=== PATIENT | female | born 2005 | race Two or more races ===

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

== ENCOUNTER 2023-01-15 21:36 | Emergency (ER) | payer BC ==
[2023-01-15] MEDS ORDERED: methylPREDNISolone SOD SUCCI 125 MG/2 ML VIAL IV STA (21:45)
[2023-01-15] MEDS ORDERED: IPRATROPIUM-ALBUTEROL 3 ML NEB INHALATION STA ×2 (21:45→21:47)
[2023-01-15] MEDS ORDERED: RACEPINEPHRINE 2.25% NEB 0.5 ML NEBU INHALATION STA (22:15)
[2023-01-15] MEDS ORDERED: FAMOTIDINE 20 MG TAB PO STA (22:15)
--- NOTE | 2023-01-15 23:28 | ED ---
Allergic Reaction HPI - General Chief complaint: Allergic Reaction Stated complaint: Allergic Reaction Time Seen by Provider: 01/15/23 21:43 Source: patient Mode of arrival: EMS Limitations: no limitations - History of Present Illness Initial Comments: 17 year Old female with no significant respiratory medical history presenting to the ED with chief complaint of ALLERGIC reaction. Patient has a known ALLERGY to bees however does not think she was stung by a bee. States that she was in her friend's bar in helping her move some stuff when all of a sudden she started to feel some facial tingling and experienced trouble breathing. She does have an EpiPen. She did not use this prior to arrival. She did take 50 mg of Benadryl prior to arrival. No chest pain. No drooling. No other complaints. - Related Data Home Medications Medication Instructions Recorded Confirmed Acetaminophen Tab [Tylenol] 325 mg PO DIRECTED PRN 05/10/22 12/05/22 Previous Rx's Medication Instructions Recorded Ibuprofen [Motrin] 400 mg PO Q6HR PRN #30 tab 10/03/22 Albuterol Inhaler [Ventolin Hfa 1 - 2 puff INHALATION Q6H PRN #1 01/15/23 Inhaler] each methylPREDNISolone Dose Pack 4 mg PO DIRECTED #1 packet 01/15/23 [Medrol Dose Pack] Allergies Allergy/AdvReac Type Severity Reaction Status Date / Time bee venom protein (honey bee) Allergy Anaphylaxis Verified 12/05/22 10:38 house dust Allergy Unknown Verified 12/05/22 10:38 latex Allergy Rash/Hives Verified 12/05/22 10:38 hydromorphone [From Dilaudid] AdvReac Unknown Verified 12/05/22 10:38 Review of Systems ROS Statement: Those systems with pertinent positive or pertinent negative responses have been documented in the HPI. ROS Other: All systems not noted in ROS Statement are negative. Past Medical History Past Medical History: No Reported History Additional Past Medical History / Comment(s): Lump left breast- removed . Hx ruptured ovarian cyst 10/2020. COVID IN EARLY 2020. migraines. pain lt wrist from old fx. History of Any Multi-Drug Resistant Organisms: None Reported Past Surgical History: No Surgical Hx Reported Additional Past Surgical History / Comment(s): Lt breast core biopsy- benign Past Anesthesia/Blood Transfusion Reactions: Postoperative Nausea & Vomiting (PONV) Additional Past Anesthesia/Blood Transfusion Reaction / Comment(s): pt had adverse rx to some part of anesthesia never known.. hard to wake up then nausea &vomiting then seizure like activity twitching,eyes rolled back ,clenching jaw. spent the night had some high bp through the night. ok the next morning.. Past Psychological History: Anxiety, Depression Smoking Status: Former smoker, Vaper - Past Family History Mother Family Medical History: No Reported History Father Family Medical History: Blood Disorder General Exam Limitations: no limitations General appearance: alert, in distress Neck exam: Present: normal inspection Respiratory exam: Present: stridor, accessory muscle use, other (Tachypnea) Cardiovascular Exam: Present: regular rate, normal rhythm GI/Abdominal exam: Present: soft Neurological exam: Present: alert, oriented X3 Skin exam: Present: warm, dry, other (No evidence of retained stinger.) Course Vital Signs 01/15/23 01/15/23 01/15/23 21:38 21:56 22:07 Temperature 98.7 F Pulse Rate 120 H 84 96 Respiratory 24 Rate Blood Pressure 133/87 O2 Sat by Pulse 100 Oximetry 01/15/23 01/15/23 23:02 23:10 Temperature Pulse Rate 84 84 Respiratory Rate Blood Pressure O2 Sat by Pulse Oximetry Medical Decision Making - Medical Decision Making Was pt. sent in by a medical professional or institution (ABDON Vasques, CURRICULUM ASSISTANT PRINCIPAL, urgent care, hospital, or longterm...) When possible be specific @ -No Did you speak to anyone other than the patient for history (EMS, parent, family, police, friend...)? What history was obtained from this source @ -No Did you review nursing and triage notes (agree or disagree)? Why? @ -I reviewed and agree with nursing and triage notes Were old charts reviewed (outside hosp., previous admission, EMS record, old EKG, old radiological studies, urgent care reports/EKG's, longterm records)? Report findings @ -No old charts were reviewed Differential Diagnosis (chest pain, altered mental status, abdominal pain women, abdominal pain men, vaginal bleeding, weakness, fever, dyspnea, syncope, headac he, dizziness, GI bleed, back pain, seizure, CVA, palpatations, mental health, musculoskeletal)? @ -Differential Dyspnea: Coronary syndrome, arrhythmia, tamponade, asthma, COPD, pulmonary embolism, pneumonia, pneumothorax, pulmonary effusion, anaphylaxis, diabetic ketoacidosis, flailed chest, pulmonary contusion, diaphragmatic rupture, anemia, neuromuscular, this is not meant to be an all-inclusive list. EKG interpreted by me (3pts min.). @ -None X-rays interpreted by me (1pt min.). @ -None done CT interpreted by me (1pt min.). @ -None done U/S interpreted by me (1pt. min.). @ -None done What testing was considered but not performed or refused? (CT, X-rays, U/S, labs)? Why? @ -None What meds were considered but not given or refused? Why? @ -None Did you discuss the management of the patient with other professionals (professionals i.e. , PA, CURRICULUM ASSISTANT PRINCIPAL, lab, RT, psych nurse, social science instructor, movement therapist, teacher, safety security officer, bilingual case manager)? Give summary @ -No Was smoking cessation discussed for >3mins.? @ -No Was critical care preformed (if so, how long)? @ -No Were there social determinants of health that impacted care today? How? (Homelessness, low income, unemployed, alcoholism, drug addiction, transportat ion, low edu. Level, literacy, decrease access to med. care, residential, rehab)? @ -No Was there de-escalation of care discussed even if they declined (Discuss DNR or withdrawal of care, Hospice)? DNR status @ -No What co-morbidities impacted this encounter? (DM, HTN, Smoking, COPD, CAD, Cancer, CVA, ARF, Chemo, Hep., AIDS, mental health diagnosis, sleep apnea, morbid obesity)? @ -None Was patient admitted / discharged? Hospital course, mention meds given and route, prescriptions, significant lab abnormalities, going to OR and other pertinent info. @ -Discharge 17-year-old female presenting to the ED with dyspnea after exposure to allergen. Initially, tachypneic with stridor on exam with accessory muscle use. Patient provided DuoNeb and racemic epi. In addition, received Solu-Medrol and Pepcid. Reevaluation of patient shows significant improvement of stridor. At discharge, patient resting comfortably with no stridor. Patient will be via prescription for Medrol Dosepak and inhaler. Discharged home in stable condition. Advised follow-up with PCP and/or chocolate refining roller. Discussed return precautions with patient's mother who verbalizes agreement. Undiagnosed new problem with uncertain prognosis? @ -No Drug Therapy requiring intensive monitoring for toxicity (Heparin, Nitro, Insulin, Cardizem)? @ -No Were any procedures done? @ -No Diagnosis/symptom? @ -Dyspnea Acute, or Chronic, or Acute on Chronic? @ -Acute Uncomplicated (without systemic symptoms) or Complicated (systemic symptoms)? @ -Complicated Side effects of treatment? @ -No Exacerbation, Progression, or Severe Exacerbation? @ -No Poses a threat to life or bodily function? How? (Chest pain, USA, ID, pneumonia, PE, COPD, DKA, ARF, appy, cholecystitis, CVA, Diverticulitis, Homicidal, Suicidal, threat to staff... and all critical care pts) @ -Yes Disposition Clinical Impression: Allergic reaction Disposition: HOME SELF-CARE Instructions (If sedation given, give patient instructions): Anaphylaxis (ED), General Allergic Reaction (ED), Allergy Testing (ED), Allergies (ED) Additional Instructions: Please return to the Emergency Department if symptoms worsen or any other concerns. Please follow up with your PCP and/or chocolate refining roller. Prescriptions: methylPREDNISolone Dose Pack [Medrol Dose Pack] 4 mg PO DIRECTED #1 packet Albuterol Inhaler [Ventolin Hfa Inhaler] 1 - 2 puff INHALATION Q6H PRN #1 each PRN Reason: Dyspnea Is patient prescribed a controlled substance at d/c from ED?: No Referrals: Gerald Dueñas MD [Primary Care Provider] - 1-2 days Time of Disposition: 23:32
[2023-01-16 00:04] VITALS: RESP 18
[2023-01-16 00:34] VITALS: BP 102/65; PULSE 74; TEMP 97.8
== END 2023-01-15 23:47 | disposition home or self-care (01) ==
LOC: EC 21:36
DX: T63.441A Toxic effect of venom of bees, accidental (unintentional), initial encounter (principal); F41.9 Anxiety disorder, unspecified; F32.A Depression, unspecified; F17.290 Nicotine dependence, other tobacco product, uncomplicated; Z91.040 Latex allergy status; Z91.030 Bee allergy status; Z88.8 Allergy status to other drugs, medicaments and biological substances; Z79.899 Other long term (current) drug therapy
CPT/HCPCS: 94640 ×2; 99283; 96374; J2930

== ENCOUNTER 2023-01-31 09:49 | Emergency (ER) | payer BC ==
[2023-01-31] MEDS ORDERED: SODIUM CHLORIDE 0.9% 1,000 ML IV STA ×2 (10:09→13:05)
--- NOTE | 2023-01-31 10:18 | ED ---
General Adult HPI - General Chief complaint: Shortness of Breath Stated complaint: SOB Time Seen by Provider: 01/31/23 10:04 Source: patient, RN notes reviewed Mode of arrival: ambulatory Limitations: no limitations - History of Present Illness Initial comments: Patient is a 17-year-old female presented ER with chief complaint of feeling out of body. Patient states she was at work this morning and started to feel extremely lightheaded. She states she went to her coworkers who states she turned white and passed out. Patient states never happened to her before. Patient states that she was sick about a week ago and may be slightly dehydrated. Patient states she did eat this morning. Patient has no significant past medical history. Patient describes a fluttering sensation in her chest with slight shortness of breath. Patient denies any fevers, chills, night sweats, abdominal pain, urinary symptoms, peripheral edema. - Related Data Home Medications Medication Instructions Recorded Confirmed Acetaminophen Tab [Tylenol] 325 mg PO DIRECTED PRN 05/10/22 12/05/22 Previous Rx's Medication Instructions Recorded Ibuprofen [Motrin] 400 mg PO Q6HR PRN #30 tab 10/03/22 Albuterol Inhaler [Ventolin Hfa 1 - 2 puff INHALATION Q6H PRN #1 01/15/23 Inhaler] each methylPREDNISolone Dose Pack 4 mg PO DIRECTED #1 packet 01/15/23 [Medrol Dose Pack] Allergies Allergy/AdvReac Type Severity Reaction Status Date / Time bee venom protein (honey bee) Allergy Anaphylaxis Verified 01/31/23 10:05 house dust Allergy Unknown Verified 01/31/23 10:05 latex Allergy Rash/Hives Verified 01/31/23 10:05 hydromorphone [From Dilaudid] AdvReac Unknown Verified 01/31/23 10:05 Review of Systems ROS Statement: Those systems with pertinent positive or pertinent negative responses have been documented in the HPI. ROS Other: All systems not noted in ROS Statement are negative. Past Medical History Past Medical History: No Reported History Additional Past Medical History / Comment(s): Lump left breast- removed . Hx ruptured ovarian cyst 10/2020. COVID IN EARLY 2020. migraines. pain lt wrist from old fx. History of Any Multi-Drug Resistant Organisms: None Reported Past Surgical History: No Surgical Hx Reported Additional Past Surgical History / Comment(s): Lt breast core biopsy- benign Past Anesthesia/Blood Transfusion Reactions: Postoperative Nausea & Vomiting (PONV) Additional Past Anesthesia/Blood Transfusion Reaction / Comment(s): pt had adverse rx to some part of anesthesia never known.. hard to wake up then nausea &vomiting then seizure like activity twitching,eyes rolled back ,clenching jaw. spent the night had some high bp through the night. ok the next morning.. Past Psychological History: Anxiety, Depression Smoking Status: Vaper Past Alcohol Use History: None Reported Past Drug Use History: None Reported - Past Family History Mother Family Medical History: No Reported History Father Family Medical History: Blood Disorder General Exam Limitations: no limitations General appearance: alert, in no apparent distress, anxious (Patient is shaking on exam.) Head exam: Present: atraumatic, normocephalic, normal inspection Respiratory exam: Present: normal lung sounds bilaterally. Absent: respiratory distress, wheezes, rales, rhonchi, stridor Cardiovascular Exam: Present: regular rate, normal rhythm, normal heart sounds. Absent: systolic murmur, diastolic murmur, rubs, gallop, clicks GI/Abdominal exam: Present: soft, normal bowel sounds. Absent: distended, tenderness, guarding, rebound, rigid Neurological exam: Present: alert, oriented X3, CN II-XII intact Psychiatric exam: Present: normal affect, normal mood Skin exam: Present: warm, dry, intact, normal color. Absent: rash Course Vital Signs 01/31/23 01/31/23 01/31/23 10:00 10:38 10:40 Temperature 98.2 F Pulse Rate 75 Pulse Rate [ 82 Sitting Crepe Laminator Operator] Pulse Rate [ Standing Crepe Laminator Operator ] Pulse Rate [ 68 Supine Crepe Laminator Operator] Respiratory 18 22 24 Rate Blood Pressure 137/83 Blood Pressure 122/93 [Right Arm Sitting] Blood Pressure [Right Arm Standing] Blood Pressure 123/80 [Right Arm Supine] O2 Sat by Pulse 100 100 100 Oximetry 01/31/23 01/31/23 01/31/23 10:42 14:36 14:38 Temperature Pulse Rate Pulse Rate [ 73 Sitting Crepe Laminator Operator] Pulse Rate [ 92 Standing Crepe Laminator Operator ] Pulse Rate [ 63 Supine Crepe Laminator Operator] Respiratory 26 H 18 18 Rate Blood Pressure Blood Pressure 114/70 [Right Arm Sitting] Blood Pressure 125/91 [Right Arm Standing] Blood Pressure 110/64 [Right Arm Supine] O2 Sat by Pulse 100 100 100 Oximetry 01/31/23 14:40 Temperature Pulse Rate Pulse Rate [ Sitting Crepe Laminator Operator] Pulse Rate [ 70 Standing Crepe Laminator Operator ] Pulse Rate [ Supine Crepe Laminator Operator] Respiratory 18 Rate Blood Pressure Blood Pressure [Right Arm Sitting] Blood Pressure 109/80 [Right Arm Standing] Blood Pressure [Right Arm Supine] O2 Sat by Pulse 100 Oximetry Medical Decision Making - Medical Decision Making Was pt. sent in by a medical professional or institution (, PA, FLOOR HELPER, urgent care, hospital, or residential...) When possible be specific @ -No Did you speak to anyone other than the patient for history (EMS, parent, family, police, friend...)? What history was obtained from this source @ -No Did you review nursing and triage notes (agree or disagree)? Why? @ -I reviewed and agree with nursing and triage notes Were old charts reviewed (outside hosp., previous admission, EMS record, old EKG, old radiological studies, urgent care reports/EKG's, residential records)? Report findings @ -No old charts were reviewed Differential Diagnosis (chest pain, altered mental status, abdominal pain women, abdominal pain men, vaginal bleeding, weakness, fever, dyspnea, syncope, headache, dizziness, GI bleed, back pain, seizure, CVA, palpatations, mental health, musculoskeletal)? @ -Differential Syncope: Valvular disease, hypertrophic cardiomyopathy, pul monary embolism, tamponade, tachycardia, bradycardia, RI, hypovolemia, hemorrhage, dissection, anemia, intracranial hemorrhage, seizure, hypoglycemia, carbon monoxide poisoning, this is not meant to be an all-inclusive list. EKG interpreted by me (3pts min.). @ -As above X-rays interpreted by me (1pt min.). @ -Chest x-ray showed no acute cardiopulmonary processes. CT interpreted by me (1pt min.). @ -None done U/S interpreted by me (1pt. min.). @ -None done What testing was considered but not performed or refused? (CT, X-rays, U/S, labs)? Why? @ -None What meds were considered but not given or refused? Why? @ -None Did you discuss the management of the patient with other professionals (professionals i.e. , ABDON, FLOOR HELPER, lab, RT, psych nurse, social security specialist, window treatment installer, teacher, chief growth officer, comp field case manager)? Give summary @ -No Was smoking cessation discussed for >3mins.? @ -Yes Was critical care preformed (if so, how long)? @ -No Were there social determinants of health that impacted care today? How? (Homelessness, low income, unemployed, alcoholism, drug addiction, transportation, low edu. Level, literacy, decrease access to med. care, shelter, rehab)? @ -No Was there de-escalation of care discussed even if they declined (Discuss DNR or withdrawal of care, Hospice)? DNR status @ -No What co-morbidities impacted this encounter? (DM, HTN, Smoking, COPD, CAD, Cancer, CVA, ARF, Chemo, Hep., AIDS, mental health diagnosis, sleep apnea, morbid obesity)? @ -None Was patient admitted / discharged? Hospital course, mention meds given and route, prescriptions, significant lab abnormalities, going to OR and other pertinent info. @ -Discharge. Labs obtained in the ER showed a potassium of 3.2. Chest x-ray showed no acute cardiopulmonary processes. EKG taken showed normal sinus rhythm with sinus arrhythmia. Patient received 2 L of IV fluid and IV Toradol for symptom control. I discussed smoking cessation with the patient. Upon re- evaluation, patient states she was feeling better. Orthostatics were taken which remained stable.I also advised her to make position changes slowly, increase her hydration and salt intake. Patient will be discharged in stable condition with follow-up to PCP. Patient expressed understanding and agreement with the care plan. Undiagnosed new problem with uncertain prognosis? @ -No Drug Therapy requiring intensive monitoring for toxicity (Heparin, Nitro, Insulin, Cardizem)? @ -No Were any procedures done? @ -No Diagnosis/symptom? @ -Vasovagal syncope Acute, or Chronic, or Acute on Chronic? @ -Acute Uncomplicated (without systemic symptoms) or Complicated (systemic symptoms)? @ -Uncomplicated Side effects of treatment? @ -No Exacerbation, Progression, or Severe Exacerbation? @ -No Poses a threat to life or bodily function? How? (Chest pain, USA, RI, pneumonia, PE, COPD, DKA, ARF, appy, cholecystitis, CVA, Diverticulitis, Homicidal, Suicidal, threat to staff... and all critical care pts) @ -No - Lab Data Result diagrams: 01/31/23 10:35 01/31/23 10:35 Lab Results 01/31/23 01/31/23 01/31/23 Range/Units 10:35 10:35 10:35 WBC 9.8 (4.0-11.0) k/uL RBC 4.71 (3.80-5.40) m/uL Hgb 15.1 (11.4-16.0) gm/dL Hct 43.0 (34.0-46.0) % MCV 91.2 (80.0-100.0) fL MCH 32.0 (25.0-35.0) pg MCHC 35.0 (31.0-37.0) g/dL RDW 11.8 (11.5-15.5) % Plt Count 328 (150-450) k/uL MPV 6.8 Neutrophils % 58 % Lymphocytes % 35 % Monocytes % 4 % Eosinophils % 1 % Basophils % 0 % Neutrophils # 5.7 (1.3-7.7) k/uL Lymphocytes # 3.4 (1.0-4.8) k/uL Monocytes # 0.4 (0-1.0) k/uL Eosinophils # 0.1 (0-0.7) k/uL Basophils # 0.0 (0-0.2) k/uL D-Dimer (<0.60) mg/L FEU Sodium 141 (137-145) mmol/L Potassium 3.2 L (3.5-5.1) mmol/L Chloride 108 H (98-107) mmol/L Carbon Dioxide 20 L (22-30) mmol/L Anion Gap 13 mmol/L BUN 9 (7-17) mg/dL Creatinine 0.75 (0.52-1.04) mg/dL Est GFR (CKD-EPI)AfAm >90 (>60 ml/min/1.73 sqM) Est GFR (CKD-EPI)NonAf >90 (>60 ml/min/1.73 sqM) Glucose 107 H (74-99) mg/dL Calcium 9.6 (8.4-10.2) mg/dL Total Bilirubin 0.4 (0.2-1.3) mg/dL AST 26 (14-36) U/L ALT 22 (4-34) U/L Alkaline Phosphatase 85 (38-126) U/L Troponin I <0.012 (0.000-0.034) ng/mL Total Protein 7.2 (6.3-8.2) g/dL Albumin 4.3 (3.5-5.0) g/dL Urine Color Urine Appearance (Clear) Urine pH (5.0-8.0) Ur Specific [place] (1.001-1.035) Urine Protein (Negative) Urine Glucose (UA) (Negative) Urine Ketones (Negative) Urine Blood (Negative) Urine Nitrite (Negative) Urine Bilirubin (Negative) Urine Urobilinogen (<2.0) mg/dL Ur Leukocyte Esterase (Negative) Urine RBC (0-5) /hpf Urine WBC (0-5) /hpf Ur Squamous Epith Cells (0-4) /hpf Urine Bacteria (None) /hpf Urine Mucus (None) /hpf Urine HCG, Qual (Not Detectd) 01/31/23 01/31/23 01/31/23 Range/Units 10:35 10:35 10:35 WBC (4.0-11.0) k/uL RBC (3.80-5.40) m/uL Hgb (11.4-16.0) gm/dL Hct (34.0-46.0) % MCV (80.0-100.0) fL MCH (25.0-35.0) pg MCHC (31.0-37.0) g/dL RDW (11.5-15.5) % Plt Count (150-450) k/uL MPV Neutrophils % % Lymphocytes % % Monocytes % % Eosinophils % % Basophils % % Neutrophils # (1.3-7.7) k/uL Lymphocytes # (1.0-4.8) k/uL Monocytes # (0-1.0) k/uL Eosinophils # (0-0.7) k/uL Basophils # (0-0.2) k/uL D-Dimer 0.18 (<0.60) mg/L FEU Sodium (137-145) mmol/L Potassium (3.5-5.1) mmol/L Chloride (98-107) mmol/L Carbon Dioxide (22-30) mmol/L Anion Gap mmol/L BUN (7-17) mg/dL Creatinine (0.52-1.04) mg/dL Est GFR (CKD-EPI)AfAm (>60 ml/min/1.73 sqM) Est GFR (CKD-EPI)NonAf (>60 ml/min/1.73 sqM) Glucose (74-99) mg/dL Calcium (8.4-10.2) mg/dL Total Bilirubin (0.2-1.3) mg/dL AST (14-36) U/L ALT (4-34) U/L Alkaline Phosphatase (38-126) U/L Troponin I (0.000-0.034) ng/mL Total Protein (6.3-8.2) g/dL Albumin (3.5-5.0) g/dL Urine Color Colorless Urine Appearance Clear (Clear) Urine pH 6.5 (5.0-8.0) Ur Specific [place] 1.008 (1.001-1.035) Urine Protein Negative (Negative) Urine Glucose (UA) Negative (Negative) Urine Ketones Negative (Negative) Urine Blood Negative (Negative) Urine Nitrite Negative (Negative) Urine Bilirubin Negative (Negative) Urine Urobilinogen <2.0 (<2.0) mg/dL Ur Leukocyte Esterase Moderate H (Negative) Urine RBC 1 (0-5) /hpf Urine WBC 4 (0-5) /hpf Ur Squamous Epith Cells 3 (0-4) /hpf Urine Bacteria Rare H (None) /hpf Urine Mucus Rare H (None) /hpf Urine HCG, Qual Not Detected (Not Detectd) - EKG Data -: EKG Interpreted by Me EKG Comments: EKG taken at 10:31 shows a normal sinus rhythm with sinus arrhythmia noted there is no acute ST or T-wave abnormalities. Ventricular rate 82, NV interval 143, QRS duration 100, QT/QTC 363/41. - Radiology Data Radiology results: report reviewed, image reviewed Disposition Clinical Impression: Dehydration, Vasovagal near syncope Disposition: HOME SELF-CARE Condition: Stable Instructions (If sedation given, give patient instructions): Syncope (ED) Additional Instructions: Please return to the Emergency Department if symptoms worsen or any other concerns. Please increase your water intake and eat food with salt content to maintain blood pressure. Advised to stop vaping as it may cause current symptoms and pain. Is patient prescribed a controlled substance at d/c from ED?: No Referrals: Gerald Dueñas MD [Primary Care Provider] - 1-2 days Time of Disposition: 14:47
[2023-01-31 10:26] VITALS: TEMP 98.2
[2023-01-31 10:57] LABS: Basophils % (A) 0 %; Eosinophils # (A) 0.1 k/uL (0-0.7); Eosinophils % (A) 1 %; HGB 15.1 gm/dL (11.4-16.0); Lymphocytes # (A) 3.4 k/uL (1.0-4.8); Lymphocytes % (A) 35 %; MCV 91.2 fL (80.0-100.0); Mean Platelet Volume 6.8; Monocytes # (A) 0.4 k/uL (0-1.0); Monocytes % (A) 4 %; Neutrophils # (A) 5.7 k/uL (1.3-7.7); Neutrophils % (A) 58 %; Platelet Count 328 k/uL (150-450); RBC 4.71 m/uL (3.80-5.40); RDW 11.8 % (11.5-15.5); WBC 9.8 k/uL (4.0-11.0)
[2023-01-31 11:31] LABS: Appearance,Urine Clear (Clear); Bacteria,Urine Rare /hpf; Bilirubin,Urine Negative (Negative); Blood,Urine Negative (Negative); Color,Urine Colorless; Glucose,Urine (UA) Negative (Negative); Ketones,Urine Negative (Negative); Leukocyte Esterase,Urine Moderate (Negative); Mucus,Urine Rare /hpf; Nitrite,Urine Negative (Negative); PH, Urine 6.5 (5.0-8.0); Protein,Urine Negative (Negative); RBC,Urine 1 /hpf (0-5); Specific Gravity,Urine 1.008 (1.001-1.035); Squamous Epithelial Cell,Urine 3 /hpf (0-4); Urobilinogen,Urine <2.0 mg/dL (<2.0); WBC,Urine 4 /hpf (0-5)
[2023-01-31 11:48] LABS: ALT 22 U/L (4-34); AST 26 U/L (14-36); African American GFR (CKD) >90 (>60 ml/min/1.73 sqM); Albumin 4.3 g/dL (3.5-5.0); Alkaline Phosphatase 85 U/L (38-126); Anion Gap 13 mmol/L; Blood Urea Nitrogen 9 mg/dL (7-17); Calcium 9.6 mg/dL (8.4-10.2); Carbon Dioxide 20 mmol/L (22-30); Chloride 108 mmol/L (98-107); Glucose 107 mg/dL (74-99); Non-African American GFR(CKD) >90 (>60 ml/min/1.73 sqM); Potassium 3.2 mmol/L (3.5-5.1); Sodium 141 mmol/L (137-145); Total Bilirubin 0.4 mg/dL (0.2-1.3); Total Protein 7.2 g/dL (6.3-8.2)
--- NOTE | 2023-01-31 13:04 | XR ---
EXAMINATION TYPE: XR chest 2V DATE OF EXAM: 01/31/2023 COMPARISON: 01/04/2022 TECHNIQUE: PA and lateral views submitted. HISTORY: Chest pain and shortness of breath FINDINGS: The lungs are clear and there is no pneumothorax, pleural effusion, or focal pneumonia. Heart size normal and no overt failure. Osseous structures demonstrate hypertrophic and degenerative changes of the spine. IMPRESSION: 1. No acute process.
[2023-01-31] MEDS ORDERED: KETOROLAC 15 MG/ML 1 ML VIAL IVP STA (13:20)
[2023-01-31 15:07] VITALS: BP 109/80; PULSE 70; RESP 18
== END 2023-01-31 15:15 | disposition home or self-care (01) ==
LOC: EC 09:49
DX: E86.0 Dehydration (principal); R55 Syncope and collapse; F17.290 Nicotine dependence, other tobacco product, uncomplicated; Z86.59 Personal history of other mental and behavioral disorders; Z91.030 Bee allergy status; Z91.040 Latex allergy status; Z88.6 Allergy status to analgesic agent; Z88.8 Allergy status to other drugs, medicaments and biological substances
CPT/HCPCS: 36415; 93005; 85379; 80053; 84484; 85025; 81001; 81025; 71046; 99285; 96374; 96361 ×2; J1885

== ENCOUNTER 2023-02-11 08:59 | Emergency (ER) | payer BC ==
[2023-02-11 09:27] VITALS: RESP 16
--- NOTE | 2023-02-11 09:37 | ED ---
Dizziness HPI - General Source: patient, RN notes reviewed Mode of arrival: wheelchair Limitations: no limitations <Tc Ceballos - Last Filed: 02/11/23 09:35> - General Source: patient, RN notes reviewed Mode of arrival: wheelchair Limitations: no limitations <Nile Yadav - Last Filed: 02/11/23 15:20> - General Chief Complaint: Syncope Stated Complaint: light headed dizzing abnormal heart rates Time Seen by Provider: 02/11/23 09:36 - History of Present Illness Initial Comments: 17-year-old female presents emergency Department with chief complaint of palpitations, near syncope. Patient states that she started having these episodes. She was seen in emergency department told that she had hypokalemia. Patient states that she was working upstairs when she started feeling her heart was racing sates that she has some television and felt like she's been a pass out. She was told that her heart rate was in the 150s and then suddenly heart rate dropped to 50. Patient does feel very lightheaded, states that she feels more dizzy now. (Tc Ceballos) Patient is a pleasant 17-year-old female presenting to the emergency department with concerns of lightheadedness. Patient was at work today or patient felt lightheaded. Patient felt fluttering in her chest. Patient states her heart rate was 150 and felt like she was about to pass out. Patient still has some symptoms however not as severe. Patient states she did have a syncopal episode a couple of weeks ago. No chest pain or dyspnea. (Nile Yadav) - Related Data Home Medications Medication Instructions Recorded Confirmed Acetaminophen [Tylenol Extra 1,000 mg PO Q6H PRN 02/11/23 02/11/23 Strength] medroxyPROGESTERone [Depo-Provera] 150 mg IM Q84D 02/11/23 02/11/23 Allergies Allergy/AdvReac Type Severity Reaction Status Date / Time bee venom protein (honey bee) Allergy Anaphylaxis Verified 02/11/23 12:59 house dust Allergy Unknown Verified 02/11/23 12:59 latex Allergy Rash/Hives Verified 02/11/23 12:59 hydromorphone [From Dilaudid] AdvReac Unknown Verified 02/11/23 12:59 Review of Systems ROS Other: All systems not noted in ROS Statement are negative. <Tc Ceballos - Last Filed: 02/11/23 09:35> ROS Other: All systems not noted in ROS Statement are negative. Constitutional: Denies: fever Eyes: Denies: eye pain ENT: Denies: ear pain Respiratory: Denies: cough, dyspnea Cardiovascular: Denies: chest pain Endocrine: Denies: fatigue Gastrointestinal: Denies: abdominal pain Neurological: Denies: headache, weakness Psychiatric: Reports: anxiety <Nile Yadav - Last Filed: 02/11/23 15:20> ROS Statement: Those systems with pertinent positive or pertinent negative responses have been documented in the HPI. Past Medical History Past Medical History: No Reported History Additional Past Medical History / Comment(s): Lump left breast- removed . Hx ruptured ovarian cyst 10/2020. COVID IN EARLY 2020. migraines. pain lt wrist from old fx. History of Any Multi-Drug Resistant Organisms: None Reported Past Surgical History: No Surgical Hx Reported Additional Past Surgical History / Comment(s): Lt breast core biopsy- benign Past Anesthesia/Blood Transfusion Reactions: Postoperative Nausea & Vomiting (PONV) Additional Past Anesthesia/Blood Transfusion Reaction / Comment(s): pt had adverse rx to some part of anesthesia never known.. hard to wake up then nausea &vomiting then seizure like activity twitching,eyes rolled back ,clenching jaw. spent the night had some high bp through the night. ok the next morning.. Past Psychological History: Anxiety, Depression Smoking Status: Former smoker, Vaper - Past Family History Mother Family Medical History: No Reported History Father Family Medical History: Blood Disorder <Tc Ceballos Dewayne - Last Filed: 02/11/23 09:35> General Exam Limitations: no limitations <Tc Ceballos - Last Filed: 02/11/23 09:35> Limitations: no limitations General appearance: alert, in no apparent distress Head exam: Present: atraumatic Eye exam: Present: normal appearance Respiratory exam: Present: normal lung sounds bilaterally Cardiovascular Exam: Present: regular rate, normal rhythm, normal heart sounds Expanded Peripheral pulses: 2+: Radial (R), Radial (L), Dorsalis Pedis (R), Dorsalis Pedis (L) GI/Abdominal exam: Present: soft. Absent: tenderness Extremities exam: Present: normal inspection. Absent: pedal edema, calf tenderness Neurological exam: Present: alert Psychiatric exam: Present: normal affect, normal mood Skin exam: Present: normal color <Nile Yadav - Last Filed: 02/11/23 15:20> - General Exam Comments Initial Comments: Visual Physical Exam Vital signs reviewed General: Well-appearing, nontoxic, no acute distress. Head: Normocephalic, atraumatic Eyes: PERRLA, EOMI ENT: Airway patent Chest: Nonlabored breathing Skin: No visual rash, normal skin tone Neuro: Alert and oriented 3 Musculoskeletal: No gross abnormalities (Tc Ceballos) Course Vital Signs 02/11/23 09:23 Temperature 97.5 F L Pulse Rate 92 Respiratory 16 Rate Blood Pressure 116/80 O2 Sat by Pulse 100 Oximetry EKG Findings - EKG Results: EKG: interpreted by ERMD (Right axis. Incomplete right bundle-branch block. No acute ST change.), sinus rhythm <Nile Yadav - Last Filed: 02/11/23 15:20> Medical Decision Making <Tc Ceballos - Last Filed: 02/11/23 09:35> - Lab Data Result diagrams: 02/11/23 09:42 02/11/23 09:42 <Nile Yadav - Last Filed: 02/11/23 15:20> - Medical Decision Making I performed a quick note portion of this chart signed Tc Ceballos PA-C (Tc Ceballos) Was pt. sent in by a medical professional or institution (ABDON Vasques, STEM PROCESSING MACHINE OPERATOR, urgent care, hospital, or custodial...) When possible be specific @ -No Did you speak to anyone other than the patient for history (EMS, parent, family, police, friend...)? What history was obtained from this source @ -No Did you review nursing and triage notes (agree or disagree)? Why? @ -I reviewed and agree with nursing and triage notes Were old charts reviewed (outside hosp., previous admission, EMS record, old EKG, old radiological studies, urgent care reports/EKG's, custodial records)? Report findings @ -No old charts were reviewed Differential Diagnosis (chest pain, altered mental status, abdominal pain women, abdominal pain men, vaginal bleeding, weakness, fever, dyspnea, syncope, headache, dizziness, GI bleed, back pain, seizure, CVA, palpatations, mental health, musculoskeletal)? @ -Differential Dizziness: Benign paroxysmal positional Vertigo, Menieres disease, otitis media, acoustic neuroma, vertebrobasilar insufficiency, cerebellar stroke, encephalitis, hypovolemic, arrhythmia, coronary artery syndrome, anemia, this is not meant to be an all-inclusive list EKG interpreted by me (3pts min.). @ -As above X-rays interpreted by me (1pt min.). @ -Chest x-ray shows no acute process CT interpreted by me (1pt min.). @ -None done U/S interpreted by me (1pt. min.). @ -None done What testing was considered but not performed or refused? (CT, X-rays, U/S, labs)? Why? @ -None What meds were considered but not given or refused? Why? @ -None Did you discuss the management of the patient with other professionals (professionals i.e. , PA, STEM PROCESSING MACHINE OPERATOR, lab, RT, psych nurse, hospital social worker, independent living advisor, teacher, small business banking officer, telephonic nurse case manager)? Give summary @ -No Was smoking cessation discussed for >3mins.? @ -No Was critical care preformed (if so, how long)? @ -No Were there social determinants of health that impacted care today? How? (Homelessness, low income, unemployed, alcoholism, drug addiction, transportation, low edu. Level, literacy, decrease access to med. care, [facility], rehab)? @ -No Was there de-escalation of care discussed even if they declined (Discuss DNR or withdrawal of care, Hospice)? DNR status @ -No What co-morbidities impacted this encounter? (DM, HTN, Smoking, COPD, CAD, Cancer, CVA, ARF, Chemo, Hep., AIDS, mental health diagnosis, sleep apnea, morbid obesity)? @ -None Was patient admitted / discharged? Hospital course, mention meds given and route, prescriptions, significant lab abnormalities, going to OR and other pertinent info. @ -Patient reevaluated and resting comfortably in bed. Patient improved with Ativan. Patient updated on results. Patient states there is some chest discomfort which she had previously denied. Patient states discomfort is positional and sharp and does increase with deep breaths. Patient is provided further medication. Patient will be discharged and recommended follow-up with her primary care physician. Undiagnosed new problem with uncertain prognosis? @ -No Drug Therapy requiring intensive monitoring for toxicity (Heparin, Nitro, Insulin, Cardizem)? @ -No Were any procedures done? @ -No Diagnosis/symptom? @ -Lightheadedness Acute, or Chronic, or Acute on Chronic? @ -Acute Uncomplicated (without systemic symptoms) or Complicated (systemic symptoms)? @ -default Side effects of treatment? @ -No Exacerbation, Progression, or Severe Exacerbation? @ -No Poses a threat to life or bodily function? How? (Chest pain, [place], [place], pneumonia, PE, COPD, DKA, ARF, appy, cholecystitis, CVA, Diverticulitis, Homicidal, Suicidal, threat to staff... and all critical care pts) @ -No (Nile Yadav) - Lab Data Lab Results 02/11/23 02/11/23 02/11/23 Range/Units 09:42 09:42 09:42 WBC 8.9 (4.0-11.0) k/uL RBC 4.97 (3.80-5.40) m/uL Hgb 15.5 (11.4-16.0) gm/dL Hct 45.5 (34.0-46.0) % MCV 91.6 (80.0-100.0) fL MCH 31.1 (25.0-35.0) pg MCHC 34.0 (31.0-37.0) g/dL RDW 12.1 (11.5-15.5) % Plt Count 338 (150-450) k/uL MPV 7.3 Neutrophils % 58 % Lymphocytes % 32 % Monocytes % 7 % Eosinophils % 1 % Basophils % 0 % Neutrophils # 5.1 (1.3-7.7) k/uL Lymphocytes # 2.9 (1.0-4.8) k/uL Monocytes # 0.6 (0-1.0) k/uL Eosinophils # 0.1 (0-0.7) k/uL Basophils # 0.0 (0-0.2) k/uL PT 11.3 (10.0-12.5) sec INR 1.0 (<1.2) APTT 26.7 (22.0-30.0) sec D-Dimer (<0.60) mg/L FEU Sodium 139 (137-145) mmol/L Potassium 3.9 (3.5-5.1) mmol/L Chloride 105 (98-107) mmol/L Carbon Dioxide 21 L (22-30) mmol/L Anion Gap 13 mmol/L BUN 10 (7-17) mg/dL Creatinine 0.80 (0.52-1.04) mg/dL Est GFR (CKD-EPI)AfAm >90 (>60 ml/min/1.73 sqM) Est GFR (CKD-EPI)NonAf >90 (>60 ml/min/1.73 sqM) Glucose 57 L (74-99) mg/dL Calcium 10.0 (8.4-10.2) mg/dL Magnesium 2.3 (1.6-2.3) mg/dL Total Bilirubin 0.9 (0.2-1.3) mg/dL AST 26 (14-36) U/L ALT 20 (4-34) U/L Alkaline Phosphatase 61 (38-126) U/L Troponin I (0.000-0.034) ng/mL Total Protein 8.0 (6.3-8.2) g/dL Albumin 4.8 (3.5-5.0) g/dL TSH 1.700 (0.465-4.680) mIU/L HCG, Qual Not Detected 02/11/23 02/11/23 Range/Units 09:42 09:42 WBC (4.0-11.0) k/uL RBC (3.80-5.40) m/uL Hgb (11.4-16.0) gm/dL Hct (34.0-46.0) % MCV (80.0-100.0) fL MCH (25.0-35.0) pg MCHC (31.0-37.0) g/dL RDW (11.5-15.5) % Plt Count (150-450) k/uL MPV Neutrophils % % Lymphocytes % % Monocytes % % Eosinophils % % Basophils % % Neutrophils # (1.3-7.7) k/uL Lymphocytes # (1.0-4.8) k/uL Monocytes # (0-1.0) k/uL Eosinophils # (0-0.7) k/uL Basophils # (0-0.2) k/uL PT (10.0-12.5) sec INR (<1.2) APTT (22.0-30.0) sec D-Dimer <0.17 (<0.60) mg/L FEU Sodium (137-145) mmol/L Potassium (3.5-5.1) mmol/L Chloride (98-107) mmol/L Carbon Dioxide (22-30) mmol/L Anion Gap mmol/L BUN (7-17) mg/dL Creatinine (0.52-1.04) mg/dL Est GFR (CKD-EPI)AfAm (>60 ml/min/1.73 sqM) Est GFR (CKD-EPI)NonAf (>60 ml/min/1.73 sqM) Glucose (74-99) mg/dL Calcium (8.4-10.2) mg/dL Magnesium (1.6-2.3) mg/dL Total Bilirubin (0.2-1.3) mg/dL AST (14-36) U/L ALT (4-34) U/L Alkaline Phosphatase (38-126) U/L Troponin I <0.012 (0.000-0.034) ng/mL Total Protein (6.3-8.2) g/dL Albumin (3.5-5.0) g/dL TSH (0.465-4.680) mIU/L HCG, Qual Disposition <Tc Ceballos - Last Filed: 02/11/23 09:35> Is patient prescribed a controlled substance at d/c from ED?: No Time of Disposition: 15:19 <Nile Yadav - Last Filed: 02/11/23 15:20> Clinical Impression: Lightheadedness Disposition: HOME SELF-CARE Condition: Stable Instructions (If sedation given, give patient instructions): Lightheadedness (ED) Additional Instructions: Please do follow-up with your primary care physician in the next day or 2 for recheck. Primary care physician will do further testing. Return for increased heart rate, pain, difficulty breathing, worsening or changing symptoms or any other concerns. Referrals: Teddy Dueñas MD [Primary Care Provider] - 1-2 days
[2023-02-11 10:00] LABS: Basophils % (A) 0 %; Eosinophils # (A) 0.1 k/uL (0-0.7); Eosinophils % (A) 1 %; HCT 45.5 % (34.0-46.0); HGB 15.5 gm/dL (11.4-16.0); Lymphocytes # (A) 2.9 k/uL (1.0-4.8); Lymphocytes % (A) 32 %; MCH 31.1 pg (25.0-35.0); MCV 91.6 fL (80.0-100.0); Mean Platelet Volume 7.3; Monocytes # (A) 0.6 k/uL (0-1.0); Monocytes % (A) 7 %; Neutrophils # (A) 5.1 k/uL (1.3-7.7); Neutrophils % (A) 58 %; Platelet Count 338 k/uL (150-450); RBC 4.97 m/uL (3.80-5.40); RDW 12.1 % (11.5-15.5); WBC 8.9 k/uL (4.0-11.0)
[2023-02-11 10:07] LABS: ALT 20 U/L (4-34); AST 26 U/L (14-36); African American GFR (CKD) >90 (>60 ml/min/1.73 sqM); Albumin 4.8 g/dL (3.5-5.0); Alkaline Phosphatase 61 U/L (38-126); Anion Gap 13 mmol/L; Blood Urea Nitrogen 10 mg/dL (7-17); Carbon Dioxide 21 mmol/L (22-30); Chloride 105 mmol/L (98-107); Glucose 57 mg/dL (74-99); Magnesium 2.3 mg/dL (1.6-2.3); Non-African American GFR(CKD) >90 (>60 ml/min/1.73 sqM); Potassium 3.9 mmol/L (3.5-5.1); Sodium 139 mmol/L (137-145); Total Bilirubin 0.9 mg/dL (0.2-1.3)
[2023-02-11 10:16] LABS: Partial Thromboplastin Time 26.7 sec (22.0-30.0); Prothrombin Time 11.3 sec (10.0-12.5)
[2023-02-11] MEDS ORDERED: LORazepam 2 MG/ML INJ IV STA (10:28)
[2023-02-11 10:49] LABS: HCG,Qualitative Serum Not Detected
--- NOTE | 2023-02-11 10:52 | XR ---
EXAMINATION TYPE: XR chest 2V DATE OF EXAM: 02/11/2023 COMPARISON: Chest x-ray January 31, 2023 HISTORY: Chest pain TECHNIQUE: Frontal and lateral views of the chest are obtained. FINDINGS: There is no suspicious marrow focal air space opacity, pleural effusion, or pneumothorax s een. The cardiac silhouette size is stable and within normal limits. The osseous structures are in tact. IMPRESSION: No acute process.
[2023-02-11] MEDS ORDERED: KETOROLAC 15 MG/ML 1 ML VIAL IM STA (13:03)
[2023-02-11] MEDS ORDERED: MORPHINE SULFATE 4 MG/ML SYRINGE IM STA (15:04)
[2023-02-11] MEDS ORDERED: CYCLOBENZAPRINE 10MG STARTER 3 TAB BTL PO STA (15:20)
[2023-02-11] MEDS ORDERED: ONDANSETRON ODT 4 MG TAB PO STA (15:54)
[2023-02-11 16:01] VITALS: BP 92/62; PULSE 108; TEMP 98
== END 2023-02-11 16:22 | disposition home or self-care (01) ==
LOC: EC 08:59
DX: R55 Syncope and collapse (principal); I45.10 Unspecified right bundle-branch block; Z88.5 Allergy status to narcotic agent; Z91.030 Bee allergy status; Z91.040 Latex allergy status; Z91.09 Other allergy status, other than to drugs and biological substances; Z87.891 Personal history of nicotine dependence; Z86.16 Personal history of COVID-19
CPT/HCPCS: 36415; 93005; 85379; 80053; 84443; 83735; 84484; 85025; 85610; 85730; 84703; 71046; 99284; 96374; 96372 ×2; J2060; J2270; J1885

== ENCOUNTER → 2023-02-26 | Outpatient (CLI) | payer BC ==
[2023-02-27 01:59] LABS: Basophils # (A) 0.04 X 10*3/uL (0.00-0.10); Basophils % (A) 0.5 %; Eosinophils # (A) 0.06 X 10*3/uL (0.04-0.35); Eosinophils % (A) 0.8 %; HCT 45.1 % (37.2-46.3); HGB 14.8 g/dL (12.0-15.0); Lymphocytes # (A) 2.14 X 10*3/uL (0.90-5.00); Lymphocytes % (A) 27.5 %; MCH 31.4 pg (27.0-32.0); MCHC 32.8 g/dL (32.0-37.0); MCV 95.6 FL (80.0-97.0); Mean Platelet Volume 10.1 FL (9.5-12.2); Monocytes # (A) 0.58 X 10*3/uL (0.20-1.00); Monocytes % (A) 7.5 %; NRBC Per 100 WBC 0 X 10*3/uL (0.00-0.01); Neutrophils # (A) 4.93 X 10*3/uL (1.80-7.70); Neutrophils % (A) 63.4 %; Platelet Count 297 X 10*3/uL (140-440); RBC 4.72 X 10*6/uL (4.10-5.20); RDW 11.9 % (11.5-14.5); WBC 7.77 X 10*3/uL (4.50-10.00)
== END | disposition home or self-care (01) ==
LOC: LABPAT 14:21
PROVIDERS: ATTEND Obstetrics & Gynecology
DX: R10.2 Pelvic and perineal pain (principal); N80.9 Endometriosis, unspecified
CPT/HCPCS: 85025

== ENCOUNTER 2023-03-05 06:15 | Observation (INO) | payer BC ==
[2023-03-05] MEDS ORDERED: diphenhydrAMINE 50 MG/ML 1 ML VIAL IVP STA ×2 (06:20→07:01)
[2023-03-05] MEDS ORDERED: FAMOTIDINE 20 MG/2 ML VIAL IV STA (06:20)
[2023-03-05] MEDS ORDERED: SODIUM CHLORIDE 0.9% 1,000 ML IV STA (06:20)
[2023-03-05] MEDS ORDERED: methylPREDNISolone SOD SUCCI 125 MG/2 ML VIAL IV STA (06:20)
--- NOTE | 2023-03-05 06:45 | ED ---
General Adult HPI - General Source: patient, RN notes reviewed, old records reviewed Mode of arrival: wheelchair Limitations: no limitations <Hiren Love - Last Filed: 03/05/23 06:37> <Henry Carvajal - Last Filed: 03/05/23 08:40> - General Chief complaint: Shortness of Breath Stated complaint: Allergic reaction, EMMA Time Seen by Provider: 03/05/23 06:20 - History of Present Illness Initial comments: Patient is a 17-year-old female with past medical history remarkable for anaphylactic reaction, with known ALLERGIES to bees, latex, dust, hydromorphone who presents emergency Department weaning of ALLERGIC reaction. Unknown cause. States she started noticing it on her way to work at approximately 5:45 AM. No significant change from that time. States is been relatively constant. States she is wheezing. No nausea or vomiting. Mild coughing. No other acute complaints at this time. Did not use her normal epinephrine pen. Presents for further evaluation at this time. Denies chest pain. Denies fevers. (Hiren Love) - Related Data Home Medications Medication Instructions Recorded Confirmed Acetaminophen [Tylenol Extra 1,000 mg PO Q6H PRN 02/11/23 02/11/23 Strength] medroxyPROGESTERone [Depo-Provera] 150 mg IM Q84D 02/11/23 02/11/23 Allergies Allergy/AdvReac Type Severity Reaction Status Date / Time bee venom protein (honey bee) Allergy Anaphylaxis Verified 02/11/23 12:59 house dust Allergy Unknown Verified 02/11/23 12:59 latex Allergy Rash/Hives Verified 02/11/23 12:59 hydromorphone [From Dilaudid] AdvReac Unknown Verified 02/11/23 12:59 Review of Systems ROS Other: All systems not noted in ROS Statement are negative. <Hiren Love - Last Filed: 03/05/23 06:37> ROS Other: All systems not noted in ROS Statement are negative. <Henry Carvajal - Last Filed: 03/05/23 08:40> ROS Statement: Those systems with pertinent positive or pertinent negative responses have been documented in the HPI. Review of Systems: CONST: Denies fever EYES: Denies blurry vision ENT: Denies nasal congestion C/V: Denies Chest pain RESP: Endorses shortness of breath GI: Denies abdominal pain : Denies dysuria SKIN: Endorses rash on neck MSK: Denies joint pain. NEURO: Denies headache (Hiren Love) Past Medical History Past Medical History: No Reported History Additional Past Medical History / Comment(s): Lump left breast- removed . Hx ruptured ovarian cyst 10/2020. COVID IN EARLY 2020. migraines. pain lt wrist from old fx. History of Any Multi-Drug Resistant Organisms: None Reported Past Surgical History: No Surgical Hx Reported Additional Past Surgical History / Comment(s): Lt breast core biopsy- benign Past Anesthesia/Blood Transfusion Reactions: Postoperative Nausea & Vomiting (PONV) Additional Past Anesthesia/Blood Transfusion Reaction / Comment(s): pt had adverse rx to some part of anesthesia never known.. hard to wake up then nausea &vomiting then seizure like activity twitching,eyes rolled back ,clenching jaw. spent the night had some high bp through the night. ok the next morning.. Past Psychological History: Anxiety, Depression Smoking Status: Former smoker, Vaper - Past Family History Mother Family Medical History: No Reported History Father Family Medical History: Blood Disorder <Hiren Love - Last Filed: 03/05/23 06:37> General Exam Limitations: no limitations <Hiren Love - Last Filed: 03/05/23 06:37> - General Exam Comments Initial Comments: General: Appears in mild to moderate distress. HEAD: Normal with no signs of head trauma. EYES: PERRLA, EOMI, conjunctiva normal, no discharge. ENT: Hearing grossly intact, normal oropharynx. Mild stridor.. Uvula is midline. No posterior oropharyngeal swelling. Tongue is not swollen. RESPIRATORY: Wheezing bilaterally. No hypoxia. Mild increased work of breathing. C/V: Mild tachycardia. S1 and S2 auscultated, no edema, peripheral pulses 2+ and intact throughout ABD: Abd is soft, nontender, nondistended EXT: Normal range of motion, no obvious deformity SKIN: Urticarial-appearing neck rash. NEURO: Alert and oriented x 4. Cranial nerves II-XII intact. No focal sensory or strength deficits. (Hiren Love) Course Vital Signs 03/05/23 03/05/23 03/05/23 06:15 06:20 06:45 Pulse Rate 126 H 113 H Respiratory 30 H 30 H 21 Rate Blood Pressure 137/82 O2 Sat by Pulse 100 100 Oximetry 03/05/23 03/05/23 03/05/23 06:50 07:13 07:26 Pulse Rate 102 H 88 80 Respiratory 25 H 22 24 Rate Blood Pressure 131/81 O2 Sat by Pulse 100 Oximetry 03/05/23 08:03 Pulse Rate 67 Respiratory 18 Rate Blood Pressure 109/66 O2 Sat by Pulse 100 Oximetry Medical Decision Making - EKG Data -: EKG Interpreted by Me <Hiren Love - Last Filed: 03/05/23 06:37> - Lab Data Result diagrams: 03/05/23 06:38 03/05/23 06:38 <Henry Carvajal - Last Filed: 03/05/23 08:40> - Medical Decision Making Was pt. sent in by a medical professional or institution (Dr. PA, LUMP INSPECTOR, urgent care, hospital, or [facility]...) When possible be specific @ -No Did you speak to anyone other than the patient for history (EMS, parent, family, police, friend...)? What history was obtained from this source @ -No Did you review nursing and triage notes (agree or disagree)? Why? @ -I reviewed and agree with nursing and triage notes Were old charts reviewed (outside hosp., previous admission, EMS record, old EKG, old radiological studies, urgent care reports/EKG's, [facility] records)? Report findings @ -Old charts reviewed Differential Diagnosis (chest pain, altered mental status, abdominal pain women, abdominal pain men, vaginal bleeding, weakness, fever, dyspnea, syncope, headache, dizziness, GI bleed, back pain, seizure, CVA, palpatations, mental health, musculoskeletal)? @ -Anaphylaxis, ALLERGIC reaction, infection, this list is not all-inclusive. EKG interpreted by me (3pts min.). @ -As above X-rays interpreted by me (1pt min.). @ -Pending CT interpreted by me (1pt min.). @ -None done U/S interpreted by me (1pt. min.). @ -None done What testing was considered but not performed or refused? (CT, X-rays, U/S, labs)? Why? @ -None What meds were considered but not given or refused? Why? @ -None Did you discuss the management of the patient with other professionals (lauren maldonado i.e. , ABDON, LUMP INSPECTOR, lab, RT, psych nurse, social media editor, sales marketing, teacher, product safety officer, case planner)? Give summary @ -No Was smoking cessation discussed for >3mins.? @ -No Was critical care preformed (if so, how long)? @ -Yes, 35 minutes Were there social determinants of health that impacted care today? How? (Homelessness, low income, unemployed, alcoholism, drug addiction, t ransportation, low edu. Level, literacy, decrease access to med. care, long-term, rehab)? @ -No Was there de-escalation of care discussed even if they declined (Discuss DNR or withdrawal of care, Hospice)? DNR status @ -No What co-morbidities impacted this encounter? (DM, HTN, Smoking, COPD, CAD, Cancer, CVA, ARF, Chemo, Hep., AIDS, mental health diagnosis, sleep apnea, morbid obesity)? @ -None Was patient admitted / discharged? Hospital course, mention meds given and route, prescriptions, significant lab abnormalities, going to OR and other pertinent info. @ -Based on patient's presentation and physical exam, presents with what appears to be anaphylactic-like reaction. Patient was immediately placed in trauma bay 2. She'll be administered 0.3 mg IM epinephrine as well as IV Solu- Medrol, Pepcid, Benadryl. She'll also be given a 1 L fluid bolus. Patient was in agreement this plan. Placed on oxygen for comfort. Vital signs are within acceptable limits other than tachycardia. Patient is mildly wheezing, mild stridor, and a hoarse voice. She was in agreement with this plan. EKG showed sinus tachycardia. Labs are pending. Imaging pending. Following initial dosing of medications, patient is feeling improved but still is mildly hoarse voice. Stridor is improved. Rash is improved. Wheezing is improved. We will administer a second dose of IM epinephrine at this time. Patient was in agreement with this plan. At this time it is the end of my shift. Care signed out to Dr. Carvajal pending results of imaging and likely admission. Undiagnosed new problem with uncertain prognosis? @ -No Drug Therapy requiring intensive monitoring for toxicity (Heparin, Nitro, Insulin, Cardizem)? @ -No Were any procedures done? @ -No Diagnosis/symptom? @ -Anaphylaxis Acute, or Chronic, or Acute on Chronic? @ -Acute Uncomplicated (without systemic symptoms) or Complicated (systemic symptoms)? @ -Complicated Side effects of treatment? @ -No Exacerbation, Progression, or Severe Exacerbation? @ -[No] Poses a threat to life or bodily function? How? (Chest pain, [place], [place], pneumonia, PE, COPD, DKA, ARF, appy, cholecystitis, CVA, Diverticulitis, Homicidal, Suicidal, threat to staff... and all critical care pts) @ -Yes (Hiren Love) Patient's heart rate came down to repeat. EKG was interpreted by myself. EKG was done shows a sinus rhythm at 69/m KS interval 231 QRSs 102 QT interval 46 QTC is 425. Patient's EKG shows no ST segment elevation or depression. Was patient admitted / discharged? Hospital course, mention meds given and route, prescriptions, significant lab abnormalities, going to OR and other pertinent info. @ -Patient was signed out to me by Dr. Love and he thought the patient was having an anaphylactic reaction with the patient came in she was given a couple doses of epinephrine Benadryl and steroids and then she was given a racemic epinephrine. When I went into evaluate the patient she stated she still felt short of breath and it was difficult to assess whether she had stridor or not because she was making some sounds locally and resonant throughout her lungs. I spoke with Dr. Galvan she agreed to admit the patient admitted the patient wrote admitting orders Undiagnosed new problem with uncertain prognosis? @ -[o] Drug Therapy requiring intensive monitoring for toxicity (Heparin, Nitro, Insulin, Cardizem)? @ -[o] Were any procedures done? @ -[o] Diagnosis/symptom? @ -Anaphylaxis Acute, or Chronic, or Acute on Chronic? @ -Acute Uncomplicated (without systemic symptoms) or Complicated (systemic symptoms)? @ -Complicated Side effects of treatment? @ -[o] Exacerbation, Progression, or Severe Exacerbation? @ -[o] Poses a threat to life or bodily function? How? (Chest pain, [place], [place], pneumonia, PE, COPD, DKA, ARF, appy, cholecystitis, CVA, Diverticulitis, Homicidal, Suicidal, threat to staff... and all critical care pts) @ -Yes this could lead to hypoxia and end organ dysfunction (Henry Carvajal) - Lab Data Lab Results 03/05/23 03/05/23 Range/Units 06:38 06:38 WBC 14.1 H (4.0-11.0) k/uL RBC 4.53 (3.80-5.40) m/uL Hgb 14.2 (11.4-16.0) gm/dL Hct 41.4 (34.0-46.0) % MCV 91.3 (80.0-100.0) fL MCH 31.4 (25.0-35.0) pg MCHC 34.4 (31.0-37.0) g/dL RDW 11.9 (11.5-15.5) % Plt Count 399 (150-450) k/uL MPV 7.1 Sodium 138 (137-145) mmol/L Potassium 2.8 L (3.5-5.1) mmol/L Chloride 109 H (98-107) mmol/L Carbon Dioxide 19 L (22-30) mmol/L Anion Gap 10 mmol/L BUN 13 (7-17) mg/dL Creatinine 0.69 (0.52-1.04) mg/dL Est GFR (CKD-EPI)AfAm >90 (>60 ml/min/1.73 sqM) Est GFR (CKD-EPI)NonAf >90 (>60 ml/min/1.73 sqM) Glucose 115 H (74-99) mg/dL Calcium 8.7 (8.4-10.2) mg/dL Total Bilirubin 0.4 (0.2-1.3) mg/dL AST 28 (14-36) U/L ALT 19 (4-34) U/L Alkaline Phosphatase 89 (38-126) U/L Total Protein 6.9 (6.3-8.2) g/dL Albumin 4.0 (3.5-5.0) g/dL - EKG Data EKG Comments: 12-lead Electrocardiogram Interpretation Note EKG was reviewed and interpreted by myself. 12-lead ECG performed at 0624 is interpreted by me as revealing sinus tachycardia at a rate of 131 beats per minute. Poston is normal. KS interval is 108 ms, QRS durations 101 ms, QTc is 458 ms.. There were no ST or T wave abnormalities to suggest myocardial ischemia or injury. R wave progression across the precordium was satisfactory. By my interpretation this EKG is non-diagnostic for acute ischemia. (Hiren Love) Critical Care Time Critical Care Time: Yes Total Critical Care Time: 35 <Henry Carvajal - Last Filed: 03/05/23 08:40> Disposition <Hiren Love - Last Filed: 03/05/23 06:37> Time of Disposition: 08:40 <Henry Carvajal - Last Filed: 03/05/23 08:40> Clinical Impression: Anaphylaxis, Hypokalemia Disposition: ADMITTED IP TO THIS HOSP Referrals: None,Stated [REFERRING] - 1-2 days
[2023-03-05 06:50] LABS: Basophils # (A) 0.1 k/uL (0-0.2); Basophils % (A) 1 %; Eosinophils # (A) 0.2 k/uL (0-0.7); Eosinophils % (A) 1 %; HCT 41.4 % (34.0-46.0); HGB 14.2 gm/dL (11.4-16.0); Lymphocytes # (A) 6.3 k/uL (1.0-4.8); MCH 31.4 pg (25.0-35.0); MCHC 34.4 g/dL (31.0-37.0); MCV 91.3 fL (80.0-100.0); Mean Platelet Volume 7.1; Monocytes # (A) 0.9 k/uL (0-1.0); Monocytes % (A) 7 %; Neutrophils # (A) 6.1 k/uL (1.3-7.7); Neutrophils % (A) 43 %; Platelet Count 399 k/uL (150-450); RBC 4.53 m/uL (3.80-5.40); RDW 11.9 % (11.5-15.5); WBC 14.1 k/uL (4.0-11.0)
[2023-03-05] MEDS ORDERED: RACEPINEPHRINE 2.25% NEB 0.5 ML NEBU INHALATION STA (07:00)
[2023-03-05] MEDS ORDERED: IPRATROPIUM-ALBUTEROL 3 ML NEB INHALATION STA (07:01)
[2023-03-05 07:04] LABS: ALT 19 U/L (4-34); AST 28 U/L (14-36); African American GFR (CKD) >90 (>60 ml/min/1.73 sqM); Alkaline Phosphatase 89 U/L (38-126); Anion Gap 10 mmol/L; Blood Urea Nitrogen 13 mg/dL (7-17); Calcium 8.7 mg/dL (8.4-10.2); Carbon Dioxide 19 mmol/L (22-30); Chloride 109 mmol/L (98-107); Glucose 115 mg/dL (74-99); Non-African American GFR(CKD) >90 (>60 ml/min/1.73 sqM); Potassium 2.8 mmol/L (3.5-5.1); Sodium 138 mmol/L (137-145); Total Bilirubin 0.4 mg/dL (0.2-1.3); Total Protein 6.9 g/dL (6.3-8.2)
--- NOTE | 2023-03-05 07:28 | XR ---
EXAMINATION TYPE: XR chest 1V portable DATE OF EXAM: 03/05/2023 Comparison: 02/11/2023 Clinical History: 17 year-old female shortness of breath, dyspnea Findings: The cardiomediastinal silhouette, aorta, and pulmonary vasculature are within normal limits. Lungs and pleural spaces are clear. Impression: No acute cardiopulmonary process.
[2023-03-05] MEDS ORDERED: POTASSIUM CHLORIDE ER 20 MEQ TAB.ER PO STA (08:04)
[2023-03-05 10:16] LABS: Lymphocytes % (A) 45 %
[2023-03-05] MEDS: ONDANSETRON 4 MG/2 ML VIAL IVP PRN ×2 (10:28→17:31)
--- NOTE | 2023-03-05 14:24 | P.HPIM ---
History of Present Illness H&P Date: 03/05/23 Patient is a 17-year-old female with history of anaphylactic reactions presenting with shortness of breath. She claims that she was on her way to work this morning and was about to change and describes when she started having respiratory distress. She also had nausea, itchy skin. She denies any lightheadedness, chest pain, abdominal pain, urinary or bowel complaints. She claims that she had something similar happen to her about 1 month ago when she might be ALLERGIC to some clothing. She does have known history of anaphylaxis with bee stings, and does have ALLERGIES to latex as well. She has not seen ALLERGY and immunology in the last few years. Patient does vape, but not daily. She denies any alcohol or illicit drug use. In the ED, pulse was 126, respiratory rate 30, saturating 100% on room air, blood pressure 137/82. She received IM epinephrine 3, IV Benadryl, IV Solu- Medrol, racemic epinephrine, DuoNebs. WBC 14, potassium creatinine 0.69, glucose 115. She also received oral potassium. Patient admitted for further observation for anaphylaxis. Pertinent positives and negatives as discussed in HPI, a complete review of systems was performed and all other systems are negative. Patient seen and examined at bedside. Vital signs reviewed General: nontoxic, no distress, appears at stated age Derm: warm, dry Head: atraumatic, normocephalic, symmetric Eyes: EOMI, no lid lag, anicteric sclera, pupils equal round reactive to light ENT: Nose and ears atraumatic Neck: No thyromegaly, supple Mouth: no lip lesion, mucus membranes moist Cardiovascular: S1S2 reg, no murmur, no edema Lungs: Stridorous sound, no significant wheezing, on supplemental oxygen Abdominal: soft, nontender to palpation, no guarding, no appreciable organomegaly Ext: no gross muscle atrophy, muscle strength muscle strength 5 out of 5 in all 4 extremities, no contractures Neuro: CN II-XII grossly intact Psych: Alert, oriented, appropriate affect Assessment/Plan: acute Anaphylaxis, non-refractory Hypokalemia, resolved Metabolic acidosis Leukocytosis, likely reactive Nausea -duoneb q2h PRN -zofran 4 IV q6h prn -symptoms improved with 3 doses of IM epi -repeat CBC and BMP tomorrow -continue supportive care -will need f/u with allergy and immunology The patient is admitted with an anticipated less than 2 midnight stay as observation status for evaluation of anaphylaxis. Surrogate decision-maker: mother CODE STATUS: FC DVT prophylaxis: not indicated Anticipated discharge date: tomorrow Anticipated discharge place: home A total of 55 minutes was spent on the care of this complex patient more than 50% of the time was spent in counseling and care coordination. Past Medical History Past Medical History: No Reported History Additional Past Medical History / Comment(s): Lump left breast- removed . Hx ruptured ovarian cyst 10/2020. COVID IN EARLY 2020. migraines. pain lt wrist from old fx. History of Any Multi-Drug Resistant Organisms: None Reported Past Surgical History: No Surgical Hx Reported Additional Past Surgical History / Comment(s): Lt breast core biopsy- benign Past Anesthesia/Blood Transfusion Reactions: Postoperative Nausea & Vomiting (PONV) Additional Past Anesthesia/Blood Transfusion Reaction / Comment(s): pt had adverse rx to some part of anesthesia never known.. hard to wake up then nausea &vomiting then seizure like activity twitching,eyes rolled back ,clenching jaw. spent the night had some high bp through the night. ok the next morning.. Past Psychological History: Anxiety, Depression Smoking Status: Former smoker, Vaper - Past Family History Mother Family Medical History: No Reported History Father Family Medical History: Blood Disorder Medications and Allergies Home Medications Medication Instructions Recorded Confirmed Type medroxyPROGESTERone [Depo-Provera] 150 mg IM Q84D 02/11/23 03/05/23 History Allergies Allergy/AdvReac Type Severity Reaction Status Date / Time bee venom protein (honey bee) Allergy Anaphylaxis Verified 03/05/23 09:03 house dust Allergy See Comment Verified 03/05/23 09:03 latex Allergy Rash/Hives Verified 03/05/23 09:03 hydromorphone [From Dilaudid] AdvReac Dyspnea Verified 03/05/23 09:03 Physical Exam Vitals: Vital Signs Pulse Resp BP Pulse Ox 03/05/23 14:00 66 18 108/60 99 03/05/23 11:52 84 18 109/63 98 03/05/23 10:26 69 18 110/67 100 03/05/23 08:03 67 18 109/66 100 03/05/23 07:26 80 24 03/05/23 07:13 88 22 03/05/23 06:50 102 H 25 H 131/81 100 03/05/23 06:45 113 H 21 137/82 100 03/05/23 06:20 30 H 03/05/23 06:15 126 H 30 H 100 Intake and Output 03/04/23 03/05/23 03/05/23 22:59 06:59 14:59 Other: Weight 46.266 kg Results CBC & Chem 7: 03/05/23 06:38 03/05/23 12:45 Labs: Abnormal Lab Results - Last 24 Hours (Table) 03/05/23 03/05/23 Range/Units 06:38 06:38 WBC 14.1 H (4.0-11.0) k/uL Lymphocytes # 6.3 H (1.0-4.8) k/uL Potassium 2.8 L (3.5-5.1) mmol/L Chloride 109 H (98-107) mmol/L Carbon Dioxide 19 L (22-30) mmol/L Glucose 115 H (74-99) mg/dL
[2023-03-05] MEDS: IPRATROPIUM-ALBUTEROL 3 ML NEB INHALATION PRN ×2 (15:13→22:11)
[2023-03-05] MEDS ORDERED: BENZOCAINE/MENTHOL LOZENG 1 EACH LOZENGE MUCOUS MEM PRN (19:01)
[2023-03-05] MEDS ORDERED: TRIMETHOBENZAMIDE 100 MG/ML 2 ML VIAL IM STA (21:50)
[2023-03-06] MEDS ORDERED: ACETAMINOPHEN TAB 325 MG TAB PO PRN (00:04)
[2023-03-06] MEDS ORDERED: ALPRAZolam 0.25 MG TAB PO STA (00:56)
[2023-03-06 07:33] VITALS: BP 99/66; PULSE 77; RESP 17; TEMP 98.3
[2023-03-06 08:32] LABS: Basophils # (A) 0.06 X 10*3/uL (0.00-0.10); Basophils % (A) 0.4 %; Eosinophils # (A) 0.01 X 10*3/uL (0.04-0.35); Eosinophils % (A) 0.1 %; HCT 38.9 % (37.2-46.3); HGB 12.9 g/dL (12.0-15.0); Lymphocytes # (A) 3.03 X 10*3/uL (0.90-5.00); Lymphocytes % (A) 20.3 %; MCHC 33.2 g/dL (32.0-37.0); MCV 93.5 FL (80.0-97.0); Monocytes % (A) 8.7 %; NRBC Per 100 WBC 0 X 10*3/uL (0.00-0.01); Neutrophils # (A) 10.49 X 10*3/uL (1.80-7.70); Neutrophils % (A) 70.2 %; Platelet Count 300 X 10*3/uL (140-440); RBC 4.16 X 10*6/uL (4.10-5.20); RDW 11.9 % (11.5-14.5); WBC 14.94 X 10*3/uL (4.50-10.00)
[2023-03-06 09:27] LABS: BUN/Creat Ratio 11.62 Ratio (12.00-20.00); Blood Urea Nitrogen 9.3 mg/dL (9.0-27.0); Carbon Dioxide 21.9 mmol/L (21.6-31.8); Chloride 106 mmol/L (96-109); Glucose 105 mg/dL (70-110); Potassium 3.9 mmol/L (3.5-5.5); Sodium 140 mmol/L (135-145)
[2023-03-06] MEDS: ONDANSETRON 4 MG/2 ML VIAL IVP PRN (10:49)
--- NOTE | 2023-03-06 11:27 | P.DS ---
Providers Date of admission: 03/05/23 08:40 Expected date of discharge: 03/06/23 Attending physician: Vanessa Galvan DO Primary care physician: Gerald Dueñas Hospital Course: Discharge Diagnosis: Acute Anaphylaxis, non-refractory Hypokalemia Metabolic acidosis Leukocytosis, likely reactive Nausea Hospital Course: Patient is a 17-year-old female with history of anaphylactic reactions presenting with shortness of breath and stridor. In the ED, pulse was 126, respiratory rate 30, saturating 100% on room air, blood pressure 137/82. She received IM epinephrine 3, IV Benadryl, IV Solu-Medrol, racemic epinephrine, DuoNebs. WBC 14, potassium 2.8, creatinine 0.69, glucose 115. She also received oral potassium. Patient admitted for further observation for anaphylaxis. Symptoms have resolved. Hypokalemia resolved. Patient being discharged home. She does have an EpiPen at home. She will follow up with ALLERGY and immunology. Patient seen and examined at bedside. Vital signs reviewed and stable. General: nontoxic, no distress, appears at stated age Derm: warm, dry Head: atraumatic, normocephalic, symmetric Eyes: EOMI, no lid lag, anicteric sclera Mouth: no lip lesion, mucus membranes moist Cardiovascular: S1S2 reg, no murmur Lungs: CTA bilateral, no rhonchi, no rales , no accessory muscle use Abdominal: soft, nontender to palpation, no guarding, no appreciable organomegaly Ext: no gross muscle atrophy, no edema, no contractures Neuro: CN II-XI grossly intact, no focal neuro deficits Psych: Alert, oriented, appropriate affect A total of 33 minutes of time were spent preparing this complex discharge summary. Patient was discharged on 03/06/23 at 1032. Patient Condition at Discharge: Stable Plan - Discharge Summary Discharge Rx Participant: Yes New Discharge Prescriptions: Continue medroxyPROGESTERone [Depo-Provera] 150 mg IM Q84D Discharge Medication List medroxyPROGESTERone [Depo-Provera] 150 mg IM Q84D 02/11/23 [History] Follow up Appointment(s)/Referral(s): Jennifer Mason MD [STAFF PHYSICIAN] - 03/20/23 10:00 [facility] (Patient prefers to schedule own appt. ) Patient Instructions/Handouts: Anaphylaxis (DC), Allergy Testing (DC) Activity/Diet/Wound Care/Special Instructions: Please see your PCP and an leaf conditioner helper. Discharge Disposition: HOME SELF-CARE
== END 2023-03-06 12:45 | disposition home or self-care (01) ==
LOC: EC 06:15 → 6NMEDSUR 08:40 → 5NMEDONC 14:32
PROVIDERS: ADMIT Internal Medicine; ATTEND Internal Medicine
DX: T78.2XXA Anaphylactic shock, unspecified, initial encounter (principal); E87.6 Hypokalemia; E87.20 Acidosis, unspecified; D72.829 Elevated white blood cell count, unspecified; R11.0 Nausea; F32.A Depression, unspecified; F41.9 Anxiety disorder, unspecified; F17.290 Nicotine dependence, other tobacco product, uncomplicated; Z86.16 Personal history of COVID-19; Z87.892 Personal history of anaphylaxis; Z88.5 Allergy status to narcotic agent; Z91.040 Latex allergy status
CPT/HCPCS: 96376 ×3; 96372 ×2; 96374; 96375; 99291; 36415; 94640 ×2; 93005; 80053; 80048; 84132; 85025 ×2; 71045; G0378 ×2; J0171; J1200; J2930; J3250; J2405 ×2; J3490

== ENCOUNTER 2023-03-15 07:03 | Day surgery (SDC) | payer BC ==
--- NOTE | 2023-03-14 12:49 | P.HPIHPCON ---
History of Present Illness H&P Date: 03/14/23 Chief Complaint: Chronic Pelvic Pain, Endometriosis Ms. Palacios is a 17 year old G0 who presents for surgical management of endometriosis. She was started on depo-provera approximately 12 weeks ago which has not relieved her symptoms. She has also tried oral contraceptives in the past which never improved her dysmenorrhea and had difficult to tolerate side effects for her. Consent for Procedure: I have explained the operation/procedure to the patient, including the risks, benefits, side effects, alternative therapies (including not receiving the proposed treatment or service), the likelihood of the patient achieving his/her goals, and potential recuperation problems for the procedure/sedation/analgesia, as well as any blood products, if indicated. I also explained to the patient the risks, benefits and side effects of the alternatives, as well as the risks related to not receiving the proposed procedure, care, treatment, or services. Past Medical History Past Medical History: No Reported History Additional Past Medical History / Comment(s): Hx ruptured ovarian cyst 10/2020. COVID IN EARLY 2020. migraines. endometriosis,. pain lt wrist from old fx., recent adm. to [facility] for anaphylactic reaction to something, spent the night for observation History of Any Multi-Drug Resistant Organisms: None Reported Past Surgical History: Appendectomy, Breast Surgery, Orthopedic Surgery Additional Past Surgical History / Comment(s): Lt breast core biopsy- benign, left hand & wrist surg., laparoscopic appy. Past Anesthesia/Blood Transfusion Reactions: Postoperative Nausea & Vomiting (PONV) Additional Past Anesthesia/Blood Transfusion Reaction / Comment(s): pt had adverse rx to dilaudid after surg., hard to wake up, then nausea &vomiting then seizure like activity twitching,eyes rolled back ,clenching jaw. spent the night had some high bp through the night. ok the next morning.. Smoking Status: Former smoker, Vaper - Past Family History Mother Family Medical History: No Reported History Father Family Medical History: Blood Disorder Medications and Allergies Home Medications Medication Instructions Recorded Confirmed Type medroxyPROGESTERone [Depo-Provera] 150 mg IM Q84D 02/11/23 03/12/23 History EPINEPHrine (Auto Inject) [Epipen] 0.3 mg IM ONCE PRN 03/12/23 03/12/23 History Allergies Allergy/AdvReac Type Severity Reaction Status Date / Time bee venom protein (honey bee) Allergy Anaphylaxis Verified 03/12/23 13:49 house dust Allergy See Comment Verified 03/12/23 13:49 latex Allergy Rash/Hives Verified 03/12/23 13:49 hydromorphone [From Dilaudid] AdvReac Dyspnea Verified 03/12/23 13:49 Surgical - Exam This is a healthy-appearing female in no apparent distress. Breathing is non- labored, the patient is conversational. Abdomen is soft, non-tender. Extremities are non-tender and non-edematous. Assessment and Plan Assessment: 17 year old G0 presenting for surgical management of endometriosis. Plan: Options reviewed of augmenting the Depo-Provera with 3 months of continuous OCPs to suppress ovulation, [place], My[place]. Patient declines these options and feels these will negatively affect her mood. She requests laparoscopic cauterization of endometriosis. I discussed this the patient that laparoscopy is not a good emt intermediate plan for management of endometriosis and that I will not be willing to do frequent laparoscopies on her. She understands and wants to try this one more time along with continuing the Depo-Provera. Risks, benefits, and alternatives to Laparoscopic Cauterization of Endometriosis were discussed including risk of bleeding, infection, damage to surrounding structures, and post-operative VTE. Patient understands these risks and desires to proceed with surgery. All questions answered. Time with Patient: Less than 30
[~2023-03-15 07:03] MED LIST changes: -LACTATED RINGERS 1,000 ML IV SCH; -LIDOCAINE 1% (10MG/ML) FOR IV START INTRADERMA ONE; -LIDOCAINE 1% (10MG/ML) FOR IV START INTRADERMA PRN; +MIDAZOLAM 2 MG/2 ML VIAL IV PRN; -PROPOFOL 10 MG/ML 20 ML VIAL IV ONE; +Pre Op ABX Message 1 EACH MISC MISCELLANE ONE; +SCOPOLAMINE 1 MG/72 HR PATCH TRANSDERM ONE; +fentaNYL (PF) 50 MCG/ML 2 ML AMP IV PRN
[2023-03-15] MEDS: LACTATED RINGERS 1,000 ML IV SCH ×2 (07:39→10:41)
[2023-03-15] MEDS: ONDANSETRON 4 MG/2 ML VIAL IVP ONE ×2 (08:00→08:07)
[2023-03-15] MEDS: DEXAMETHASONE SOD PHOSPHATE 4 MG/ML 1 ML VIAL IV ONE ×2 (08:00→08:07)
[2023-03-15 08:15] VITALS: RESP 16
[2023-03-15] MEDS ORDERED: NEOSTIGMINE 1 MG/ML 10 ML VIAL ONE (08:51)
[2023-03-15] MEDS ORDERED: GLYCOPYRROLATE 0.2 MG/ML 2 ML VIAL ONE (08:51)
[2023-03-15] MEDS ORDERED: ROCURONIUM 10 MG/ML (5 ML VIAL) IV ONE (08:51)
[2023-03-15] MEDS ORDERED: MIDAZOLAM 2 MG/2 ML VIAL ONE (08:51)
[2023-03-15] MEDS ORDERED: KETOROLAC 15 MG/ML 1 ML VIAL ONE (08:51)
[2023-03-15] MEDS ORDERED: fentaNYL (PF) 50 MCG/ML 2 ML AMP ONE (08:51)
[2023-03-15] MEDS ORDERED: diphenhydrAMINE 50 MG/ML 1 ML VIAL ONE (08:51)
[2023-03-15] MEDS ORDERED: PROPOFOL 10 MG/ML 20 ML VIAL IV ONE (08:51)
[2023-03-15] MEDS ORDERED: SUCCINYLCHOLINE CHLORIDE 200 MG/10 ML VIAL IV ONE (08:51)
[2023-03-15] MEDS ORDERED: LIDOCAINE 1% INJ 10MG/ML (20 ML MDV) ONE (08:51)
[2023-03-15] MEDS ORDERED: PHENYLEPHRINE-0.9% NACL SYG 1,000 MCG/10 ML SYRINGE ONE (08:51)
[2023-03-15] MEDS ORDERED: BUPIVACAINE (PF) 0.25% 30 ML VIAL SQ ONE ×2 (09:23)
--- NOTE | 2023-03-15 09:49 | P.OP ---
Date of Procedure: 03/15/23 Preoperative Diagnosis: 1. Chronic Pelvic Pain 2. Endometriosis Postoperative Diagnosis: Same Procedure(s) Performed: Laparoscopic Cauterization of Endometriosis Implants: None Anesthesia: ARNOLD Surgeon: Lorraine Marquez Estimated Blood Loss (ml): 1 IV fluids (ml): 500 Urine output (ml): 0 Pathology: none sent Condition: stable Disposition: same day Indications for Procedure: 17 year old G0 presenting for surgical management of endometriosis. Options reviewed of augmenting the Depo-Provera with 3 months of continuous OCPs to suppress ovulation, [place], MyF[place]. Patient declines these options and feels these will negatively affect her mood. She requests laparoscopic cauterization of endometriosis. I discussed this the patient that laparoscopy is not a good correction plan for management of endometriosis and that I will not be willing to do frequent laparoscopies on her. She understands and wants to try this one more time along with continuing the Depo-Provera. Risks, benefits, and alternatives to Laparoscopic Cauterization of Endometriosis were discussed including risk of bleeding, infection, damage to surrounding structures, and post-operative VTE. Patient understands these risks and desires to proceed with surgery. All questions answered. Operative Findings: Stage I Endometriosis with a few scattered superficial implants on the cul-de-sac peritoneum and along the uterosacral ligaments. A few implants are also visualized on the posterior lower uterine segment. Otherwise, unremarkable abdomen. Description of Procedure: Patient was taken to the OR with IV fluid running and pneumatic compression stockings on both legs. General anesthesia was obtained without difficulty. The patient was placed in the dorsal lithotomy position with Richard-type stirrups with knees bent at 30 degree angles. Examination under anesthesia revealed a normal-sized, anteverted uterus. The patient as prepared and draped. The bladder was emptied. A speculum was placed into the vagina. A sponge stick was placed in the vagina to assist with uterine manipulation. A horizontal skin incision was made at the umbilical fold. The periumbilical skin was manually elevated. A 5mm trocar was inserted into the abdomen under direct laparoscopic visualization. Intraabdominal survey revealed lack of any visceral or vascular injury. The pelvic and abdominal anatomy was noted as above. One additional laparoscopic assit ports were placed in the left lower quadrants. A Laproscopic Monopolar Spatula was used to cauterize all appreciated peritoneal implants. Excellent hemostasis was noted at the end of the case. All instruments were removed from the abdomen. Skin incisiosn were closed with 4-0 Monocryl and skin glue. The sponge stick was removed from the vagina. All counts were correct times two. The patient was taken to the recovery room in stable condition.the recovery room in stable condition.
[2023-03-15 10:19] VITALS: TEMP 98
[2023-03-15 13:11] VITALS: BP 101/64; PULSE 61
== END 2023-03-15 13:27 | disposition home or self-care (01) ==
LOC: OR 07:03
PROVIDERS: ATTEND Obstetrics & Gynecology
DX: N80.9 Endometriosis, unspecified (principal); G89.29 Other chronic pain; G43.909 Migraine, unspecified, not intractable, without status migrainosus; F32.A Depression, unspecified; F41.9 Anxiety disorder, unspecified; Z88.5 Allergy status to narcotic agent; Z91.030 Bee allergy status; Z91.040 Latex allergy status; Z91.048 Other nonmedicinal substance allergy status; Z79.899 Other long term (current) drug therapy; Z87.891 Personal history of nicotine dependence; Z86.16 Personal history of COVID-19; Z98.890 Other specified postprocedural states
CPT/HCPCS: 81025; 58662; J2250; J0330; J1200; J1100; J2710; J2405; J2001; J3010; J1885; J2704; J2371; J0665

== ENCOUNTER 2023-05-06 18:19 | Emergency (ER) | payer BC ==
[2023-05-06 18:36] VITALS: TEMP 98.7
--- NOTE | 2023-05-06 18:38 | ED ---
Abdominal Pain HPI - General Source: patient, RN notes reviewed Mode of arrival: ambulatory Limitations: no limitations <Susan Lauren - Last Filed: 05/06/23 18:38> <Abdi Fletcher - Last Filed: 05/07/23 03:25> - General Chief Complaint: Abdominal Pain Stated Complaint: adominal pain Time Seen by Provider: 05/06/23 18:38 - History of Present Illness Initial Comments: Patient is a 17-year-old female presented to ER with chief complaint of right upper quadrant pain. Patient states this started last night and has just increased intensity. Patient seen by urgent care and [facility]. Was told she had a UTI. (Susan Lauren) 17-year-old female presenting with chief complaint of abdominal pain. Pain is located in the right upper quadrant. Pain started last night, feels like a sharp stabbing pain. Patient was seen at urgent care and [facility] ER today. She had an ultrasound performed and was later told she had a UTI. She admits to nausea and vomiting. No diarrhea. No hematochezia or melena. No chest pain or difficulty breathing. Surgical history includes appendectomy and laparoscopic treatment for endometriosis. No fevers or chills. (Abdi Fletcher) - Related Data Home Medications Medication Instructions Recorded Confirmed medroxyPROGESTERone [Depo-Provera] 150 mg IM Q84D 02/11/23 03/15/23 EPINEPHrine (Auto Inject) [Epipen] 0.3 mg IM ONCE PRN 03/12/23 03/15/23 Previous Rx's Medication Instructions Recorded Acetaminophen Tab [Tylenol] 650 mg PO Q6H PRN #30 tab 03/15/23 Ibuprofen [Motrin] 600 mg PO Q6HR PRN #30 tab 03/15/23 oxyCODONE HCL [Roxicodone] 5 mg PO Q6HR PRN 3 Days #12 tab 03/15/23 Pantoprazole [Protonix] 40 mg PO DAILY #10 tab 05/07/23 Allergies Allergy/AdvReac Type Severity Reaction Status Date / Time bee venom protein (honey bee) Allergy Anaphylaxis Verified 03/15/23 07:43 house dust Allergy See Comment Verified 03/15/23 07:43 latex Allergy Rash/Hives Verified 03/15/23 07:43 hydromorphone [From Dilaudid] AdvReac Dyspnea Verified 03/15/23 07:43 Review of Systems ROS Other: All systems not noted in ROS Statement are negative. <Susan Lauren - Last Filed: 05/06/23 18:38> ROS Other: All systems not noted in ROS Statement are negative. <Abdi Fletcher - Last Filed: 05/07/23 03:25> ROS Statement: Those systems with pertinent positive or pertinent negative responses have been documented in the HPI. Past Medical History Past Medical History: No Reported History Additional Past Medical History / Comment(s): Lump left breast- removed . Hx ruptured ovarian cyst 10/2020. COVID IN EARLY 2020. migraines. pain lt wrist from old fx. History of Any Multi-Drug Resistant Organisms: None Reported Past Surgical History: No Surgical Hx Reported Additional Past Surgical History / Comment(s): Lt breast core biopsy- benign Past Anesthesia/Blood Transfusion Reactions: Postoperative Nausea & Vomiting (PONV) Additional Past Anesthesia/Blood Transfusion Reaction / Comment(s): pt had adverse rx to some part of anesthesia never known.. hard to wake up then nausea &vomiting then seizure like activity twitching,eyes rolled back ,clenching jaw. spent the night had some high bp through the night. ok the next morning.. Past Psychological History: Anxiety, Depression Smoking Status: Former smoker, Vaper Past Alcohol Use History: None Reported Past Drug Use History: None Reported - Past Family History Mother Family Medical History: No Reported History Father Family Medical History: Blood Disorder <Susan Lauren - Last Filed: 05/06/23 18:38> General Exam Limitations: no limitations <Susan Lauren - Last Filed: 05/06/23 18:38> Limitations: no limitations General appearance: alert, in no apparent distress Head exam: Present: atraumatic, normocephalic Eye exam: Present: normal appearance Neck exam: Present: normal inspection Respiratory exam: Present: normal lung sounds bilaterally. Absent: respiratory distress, wheezes, rales, rhonchi, stridor Cardiovascular Exam: Present: regular rate, normal rhythm, normal heart sounds. Absent: systolic murmur, diastolic murmur, rubs, gallop, clicks GI/Abdominal exam: Present: soft, tenderness (RUQ). Absent: distended, guarding, rebound, rigid Neurological exam: Present: alert, oriented X3 Psychiatric exam: Present: normal affect, normal mood Skin exam: Present: warm, dry <Abdi Fletcher - Last Filed: 05/07/23 03:25> - General Exam Comments Initial Comments: Visual Physical Exam Vital signs reviewed General: Well-appearing, nontoxic, no acute distress. Head: Normocephalic, atraumatic Eyes: PERRLA, EOMI ENT: Airway patent Chest: Nonlabored breathing Skin: No visual rash, normal skin tone Neuro: Alert and oriented 3 Musculoskeletal: No gross abnormalities (Susan Lauren) Course Vital Signs 05/06/23 05/07/23 18:22 01:31 Temperature 98.7 F Pulse Rate 110 H 61 Respiratory 18 16 Rate Blood Pressure 134/96 103/66 O2 Sat by Pulse 100 99 Oximetry Medical Decision Making <Susan Lauren - Last Filed: 05/06/23 18:38> - Lab Data Result diagrams: 05/06/23 18:56 05/06/23 18:56 <Abdi Fletcher - Last Filed: 05/07/23 03:25> - Medical Decision Making I performed the quick note portion of this chart. Electronically signed by Susan Lauren PA-C (Susan Lauren) Was pt. sent in by a medical professional or institution (ABDON Vasques, GENERAL PRACTICE, urgent care, hospital, or usp...) When possible be specific @ -No Did you speak to anyone other than the patient for history (EMS, parent, family, police, friend...)? What history was obtained from this source @ -No Did you review nursing and triage notes (agree or disagree)? Why? @ -I reviewed and agree with nursing and triage notes Were old charts reviewed (outside hosp., previous admission, EMS record, old EKG, old radiological studies, urgent care reports/EKG's, usp records)? Report findings @ -Ultrasound report performed at [facility] is revie wed. Ultrasound shows normal sonographic appearance of the abdomen. Differential Diagnosis (chest pain, altered mental status, abdominal pain women, abdominal pain men, vaginal bleeding, weakness, fever, dyspnea, syncope, headache, dizziness, GI bleed, back pain, seizure, CVA, palpatations, mental health, musculoskeletal)? @ -MDM Differential Abdominal Pain Women: Appendicitis, Cholecystitis, diverticulosis, ischemic bowel, pancreatitis, hepatitis, UTI, gastroenteritis, AAA, incarcerated hernia, bowel obstruction, constipation, inflammatory bowel, hepatitis, peptic ulcer disease, splenic in farction, perforated viscus, vulvitis, ovarian torsion, PID, kidney stone, placenta abruption... This is not meant to be an all-inclusive list EKG interpreted by me (3pts min.). @ -As above X-rays interpreted by me (1pt min.). @ -None done CT interpreted by me (1pt min.). @ -CT shows wall thickening of small bowel, concerning for enteritis. Appendectomy. U/S interpreted by me (1pt. min.). @ -None done What testing was considered but not performed or refused? (CT, X-rays, U/S, labs)? Why? @ -None What meds were considered but not given or refused? Why? @ -None Did you discuss the management of the patient with other professionals (professionals i.e. , PA, GENERAL PRACTICE, lab, RT, psych nurse, director of social media marketing, cook boat, teacher, tactical intelligence officer, manager rn case)? Give summary @ -No Was smoking cessation discussed for >3mins.? @ -No Was critical care preformed (if so, how long)? @ -No Were there social determinants of health that impacted care today? How? (Homelessness, low income, unemployed, alcoholism, drug addiction, transportation, low edu. Level, literacy, decrease access to med. care, shelter, rehab)? @ -No Was there de-escalation of care discussed even if they declined (Discuss DNR or withdrawal of care, Hospice)? DNR status @ -No What co-morbidities impacted this encounter? (DM, HTN, Smoking, COPD, CAD, Cancer, CVA, ARF, Chemo, Hep., AIDS, mental health diagnosis, sleep apnea, m orbid obesity)? @ -None Was patient admitted / discharged? Hospital course, mention meds given and route, prescriptions, significant lab abnormalities, going to OR and other pertinent info. @ -17-year-old female presenting with chief complaint of right upper quadrant pain. Workup was initiated by triage. WBC 11.4. CMP requires no further action. Amylase and lipase are WNL. Urine shows signs of contamination. Negative hCG. Patient is later placed in a room and history and physical exam a re conducted. She has tenderness to the right upper quadrant. I obtained the ultrasound report for the study that she had done earlier today at [facility]. This report showed no acute process. CT is obtained. CT shows wall thickening of small bowel concerning for enteritis. Patient is educated on today's findings. She is instructed to follow-up with her PCP and GI. Discharged home. Follow-up with PCP. Report back to ER with any new or worsening symptoms. Discussed return parameters and answered all questions. Patient conveyed verbal understanding and agreed to the plan. I discussed this case in detail with my attending Dr. Starr Undiagnosed new problem with uncertain prognosis? @ -No Drug Therapy requiring intensive monitoring for toxicity (Heparin, Nitro, Ins ulin, Cardizem)? @ -No Were any procedures done? @ -No Diagnosis/symptom? @ -Enteritis Acute, or Chronic, or Acute on Chronic? @ -Acute Uncomplicated (without systemic symptoms) or Complicated (systemic symptoms)? @ -Uncomplicated Side effects of treatment? @ -No Exacerbation, Progression, or Severe Exacerbation? @ -No Poses a threat to life or bodily function? How? (Chest pain, USA, ID, pneumonia, PE, COPD, DKA, ARF, appy, cholecystitis, CVA, Diverticulitis, Homicidal, Suicidal, threat to staff... and all critical care pts) @ -Unlikely (Abdi Fletcher) - Lab Data Lab Results 05/06/23 05/06/23 05/06/23 Range/Units 18:56 18:56 18:56 WBC 11.4 H (4.0-11.0) k/uL RBC 4.68 (3.80-5.40) m/uL Hgb 14.7 (11.4-16.0) gm/dL Hct 42.7 (34.0-46.0) % MCV 91.1 (80.0-100.0) fL MCH 31.3 (25.0-35.0) pg MCHC 34.4 (31.0-37.0) g/dL RDW 12.3 (11.5-15.5) % Plt Count 332 (150-450) k/uL MPV 7.3 Sodium 143 (137-145) mmol/L Potassium 3.7 (3.5-5.1) mmol/L Chloride 110 H (98-107) mmol/L Carbon Dioxide 24 (22-30) mmol/L Anion Gap 9 mmol/L BUN 15 (7-17) mg/dL Creatinine 0.82 (0.52-1.04) mg/dL Est GFR (CKD-EPI)AfAm >90 (>60 ml/min/1.73 sqM) Est GFR (CKD-EPI)NonAf >90 (>60 ml/min/1.73 sqM) Glucose 88 (74-99) mg/dL Plasma Lactic Acid Memo 0.7 (0.7-2.0) mmol/L Calcium 10.2 (8.4-10.2) mg/dL Total Bilirubin 0.6 (0.2-1.3) mg/dL AST 26 (14-36) U/L ALT 14 (4-34) U/L Alkaline Phosphatase 80 (38-126) U/L Total Protein 7.6 (6.3-8.2) g/dL Albumin 4.5 (3.5-5.0) g/dL Amylase 101 (30-110) U/L Lipase 75 (23-300) U/L Urine Color Urine Appearance (Clear) Urine pH (5.0-8.0) Ur Specific [place] (1.001-1.035) Urine Protein (Negative) Urine Glucose (UA) (Negative) Urine Ketones (Negative) Urine Blood (Negative) Urine Nitrite (Negative) Urine Bilirubin (Negative) Urine Urobilinogen (<2.0) mg/dL Ur Leukocyte Esterase (Negative) Urine RBC (0-5) /hpf Urine WBC (0-5) /hpf Ur Squamous Epith Cells (0-4) /hpf Amorphous Sediment (None) /hpf Urine Mucus (None) /hpf Urine HCG, Qual (Not Detectd) 05/06/23 05/06/23 Range/Units 19:44 19:44 WBC (4.0-11.0) k/uL RBC (3.80-5.40) m/uL Hgb (11.4-16.0) gm/dL Hct (34.0-46.0) % MCV (80.0-100.0) fL MCH (25.0-35.0) pg MCHC (31.0-37.0) g/dL RDW (11.5-15.5) % Plt Count (150-450) k/uL MPV Sodium (137-145) mmol/L Potassium (3.5-5.1) mmol/L Chloride (98-107) mmol/L Carbon Dioxide (22-30) mmol/L Anion Gap mmol/L BUN (7-17) mg/dL Creatinine (0.52-1.04) mg/dL Est GFR (CKD-EPI)AfAm (>60 ml/min/1.73 sqM) Est GFR (CKD-EPI)NonAf (>60 ml/min/1.73 sqM) Glucose (74-99) mg/dL Plasma Lactic Acid Memo (0.7-2.0) mmol/L Calcium (8.4-10.2) mg/dL Total Bilirubin (0.2-1.3) mg/dL AST (14-36) U/L ALT (4-34) U/L Alkaline Phosphatase (38-126) U/L Total Protein (6.3-8.2) g/dL Albumin (3.5-5.0) g/dL Amylase (30-110) U/L Lipase (23-300) U/L Urine Color Colorless Urine Appearance Cloudy H (Clear) Urine pH 6.5 (5.0-8.0) Ur Specific [place] 1.013 (1.001-1.035) Urine Protein Negative (Negative) Urine Glucose (UA) Negative (Negative) Urine Ketones Negative (Negative) Urine Blood Negative (Negative) Urine Nitrite Negative (Negative) Urine Bilirubin Negative (Negative) Urine Urobilinogen <2.0 (<2.0) mg/dL Ur Leukocyte Esterase Moderate H (Negative) Urine RBC 1 (0-5) /hpf Urine WBC 4 (0-5) /hpf Ur Squamous Epith Cells 4 (0-4) /hpf Amorphous Sediment Occasional H (None) /hpf Urine Mucus Rare H (None) /hpf Urine HCG, Qual Not Detected (Not Detectd) Disposition <Susan Lauren - Last Filed: 05/06/23 18:38> Is patient prescribed a controlled substance at d/c from ED?: No Time of Disposition: 00:47 <Abdi Fletcher - Last Filed: 05/07/23 03:25> Clinical Impression: Enteritis Disposition: HOME SELF-CARE Condition: Good Instructions (If sedation given, give patient instructions): Enteritis (ED) Additional Instructions: Follow-up with PCP and GI. Report back to ER with any new or worsening symptoms. Prescriptions: Pantoprazole [Protonix] 40 mg PO DAILY #10 tab Referrals: Teddy Dueñas MD [Primary Care Provider] - 1-2 days Lisa Meadows MD [STAFF PHYSICIAN] - 1-2 days
[2023-05-06 19:13] LABS: HCT 42.7 % (34.0-46.0); HGB 14.7 gm/dL (11.4-16.0); MCH 31.3 pg (25.0-35.0); MCHC 34.4 g/dL (31.0-37.0); MCV 91.1 fL (80.0-100.0); Mean Platelet Volume 7.3; Platelet Count 332 k/uL (150-450); RBC 4.68 m/uL (3.80-5.40); RDW 12.3 % (11.5-15.5); WBC 11.4 k/uL (4.0-11.0)
[2023-05-06 19:21] LABS: ALT 14 U/L (4-34); AST 26 U/L (14-36); African American GFR (CKD) >90 (>60 ml/min/1.73 sqM); Albumin 4.5 g/dL (3.5-5.0); Alkaline Phosphatase 80 U/L (38-126); Amylase 101 U/L (30-110); Anion Gap 9 mmol/L; Blood Urea Nitrogen 15 mg/dL (7-17); Calcium 10.2 mg/dL (8.4-10.2); Carbon Dioxide 24 mmol/L (22-30); Chloride 110 mmol/L (98-107); Glucose 88 mg/dL (74-99); Lipase 75 U/L (23-300); Non-African American GFR(CKD) >90 (>60 ml/min/1.73 sqM); Potassium 3.7 mmol/L (3.5-5.1); Sodium 143 mmol/L (137-145); Total Bilirubin 0.6 mg/dL (0.2-1.3); Total Protein 7.6 g/dL (6.3-8.2)
[2023-05-06 20:29] LABS: Amorphous Sediment,Urine Occasional /hpf; Appearance,Urine Cloudy (Clear); Bilirubin,Urine Negative (Negative); Blood,Urine Negative (Negative); Color,Urine Colorless; Glucose,Urine (UA) Negative (Negative); Ketones,Urine Negative (Negative); Leukocyte Esterase,Urine Moderate (Negative); Mucus,Urine Rare /hpf; Nitrite,Urine Negative (Negative); PH, Urine 6.5 (5.0-8.0); Protein,Urine Negative (Negative); RBC,Urine 1 /hpf (0-5); Specific Gravity,Urine 1.013 (1.001-1.035); Squamous Epithelial Cell,Urine 4 /hpf (0-4); Urobilinogen,Urine <2.0 mg/dL (<2.0); WBC,Urine 4 /hpf (0-5)
[2023-05-06] MEDS: ONDANSETRON 4 MG/2 ML VIAL IVP STA (20:59)
[2023-05-06] MEDS: FAMOTIDINE 20 MG/2 ML VIAL IV STA (20:59)
[2023-05-06] MEDS: MAG HYDROX/AL HYDROX/SIMETH 30 ML, HYOSCYAMINE ELIXIR 10 ML, LIDOCAINE VISCOUS 2% 10 ML PO STA (20:59)
[2023-05-06] MEDS: KETOROLAC 15 MG/ML 1 ML VIAL IVP STA (21:00)
[2023-05-06] MEDS: SODIUM CHLORIDE 0.9% 1,000 ML IV ONE (21:31)
[2023-05-07] MEDS: MORPHINE SULFATE 4 MG/ML SYRINGE IVP STA
--- NOTE | 2023-05-07 00:02 | CT ---
EXAM: CT Abdomen and Pelvis With Intravenous Contrast CLINICAL HISTORY: ITS.REASON CT Reason: RUQ pain TECHNIQUE: Axial computed tomography images of the abdomen and pelvis with intravenous contrast. CTDI is 9.0 mGy and DLP is 435.4 mGy-cm. This CT exam was performed using one or more of the following dose reduction techniques: automated exposure control, adjustment of the mA and/or kV according to patient size, and/or use of iterative reconstruction technique. COMPARISON: No relevant prior studies available. FINDINGS: Lung bases: Unremarkable. No mass. No consolidation. ABDOMEN: Liver: Unremarkable. No mass. Gallbladder and bile ducts: Unremarkable. No calcified stones. No ductal dilation. Pancreas: Unremarkable. No mass. No ductal dilation. Spleen: Unremarkable. No splenomegaly. Adrenals: Unremarkable. No mass. Kidneys and ureters: Unremarkable. No solid mass. No hydronephrosis. Stomach and bowel: Wall thickening of small bowel, concerning for enteritis. No obstruction. PELVIS: Appendix: Appendectomy. Bladder: Unremarkable. No mass. Reproductive: Unremarkable as visualized. ABDOMEN and PELVIS: Intraperitoneal space: Unremarkable. No free air. No significant fluid collection. Bones/joints: No acute fracture. No dislocation. Soft tissues: Unremarkable. Vasculature: Unremarkable. No abdominal aortic aneurysm. Lymph nodes: Unremarkable. No enlarged lymph nodes. IMPRESSION: 1. Wall thickening of small bowel, concerning for enteritis. 2. Appendectomy.
[2023-05-07 02:00] VITALS: BP 103/66; PULSE 61; RESP 16
== END 2023-05-07 01:31 | disposition home or self-care (01) ==
LOC: EC 18:19
DX: K52.9 Noninfective gastroenteritis and colitis, unspecified (principal); F17.290 Nicotine dependence, other tobacco product, uncomplicated; Z86.59 Personal history of other mental and behavioral disorders; Z86.16 Personal history of COVID-19; Z88.5 Allergy status to narcotic agent; Z91.030 Bee allergy status; Z91.040 Latex allergy status
CPT/HCPCS: 36415; 80053; 82150; 83605; 83690; 85027; 81001; 81025; 74177; 99285; 96374; 96375 ×3; 96361 ×2; J2270; J2405; J3490; J1885; Q9967

== ENCOUNTER 2024-09-08 12:24 | Emergency (ER) | payer BC ==
--- NOTE | 2024-09-08 13:09 | US ---
EXAMINATION TYPE: US gallbladder DATE OF EXAM: 09/08/2024 COMPARISON: CT 05/06/2023 CLINICAL INDICATION: Female, 18 years old with history of RUQ pain after eating; Nausea, vomiting, an d RUQ pain x 2 days. Hx Endometriosis and appendectomy TECHNIQUE: Grayscale and color Doppler imaging of the right upper quadrant was performed. FINDINGS: EXAM MEASUREMENTS: Liver Length: 16.5 cm Gallbladder Wall: 0.1 cm CBD: 0.4 cm Right Kidney: 11.5 x 4.2 x 3.2 cm [employer] OPERATOR NOTES: Pancreas: wnl Liver: wnl Gallbladder: wnl Evidence for sonographic Hall's sign: Yes CBD: wnl Right Kidney: wnl IMPRESSION: 1. Unremarkable right upper quadrant ultrasound. 2. There was some positive Hall sign present during the examination, clinical management of any adilson pected cholecystitis recommended. No ultrasound evidence of acute cholecystitis. [facility], , 09/08/2024 1:07 PM
--- NOTE | 2024-09-08 13:16 | ED ---
Abdominal Pain HPI - General Source: patient, RN notes reviewed Mode of arrival: ambulatory Limitations: no limitations <Susan Lauren - Last Filed: 09/08/24 13:15> <Josh Randolph - Last Filed: 09/08/24 18:44> - General Chief Complaint: Abdominal Pain Stated Complaint: Abd Pain,Vomiting Time Seen by Provider: 09/08/24 13:16 - History of Present Illness Initial Comments: Quick note: 18-year-old female presented to ER for evaluation of nausea and vomiting. Patient states since yesterday morning she is unable to keep anything down. Patient is reporting right upper quadrant abdominal pain along with right shoulder pain. She admits to chills. (Susan Lauren) Dictation was produced using [employer] dictation software. please excuse any grammatical, word or spelling errors. Chief Complaint: 18-year-old female history of endometriosis and appendectomy presents with nausea vomiting and right upper quadrant abdominal pain History of Present Illness: Patient 18-year-old female presents emergency department worsening right upper quadrant abdominal pain. Patient states that she is having intractable nausea and vomiting. States that her emesis is nonbloody nonbilious. Complains of chills but denies any fevers. The ROS documented in this emergency department record has been reviewed and confirmed by me. Those systems with pertinent positive or negative responses have been documented in the HPI. All other systems are other negative and/or noncontributory. (Josh Randolph) - Related Data Home Medications Medication Instructions Recorded Confirmed medroxyPROGESTERone [Depo-Provera] 150 mg IM Q84D 02/11/23 09/08/24 Clindamycin Phos/Benzoyl Perox 1 applic TOPICAL HS 09/08/24 09/08/24 [Clindamycin-Bnz Perox 1-5% Belt Polisher] Dicyclomine [Bentyl] 10 mg PO TID PRN 09/08/24 09/08/24 Famotidine [Pepcid] 20 mg PO HS 09/08/24 09/08/24 Ketoconazole 2% Shampoo [Nizoral] 1 applic TOPICAL DAILY 09/08/24 09/08/24 Omeprazole 20 mg PO DAILY 09/08/24 09/08/24 Ondansetron Odt [Zofran Odt] 4 mg PO Q6H PRN 09/08/24 09/08/24 Sucralfate [Carafate] 1 gm PO BID 09/08/24 09/08/24 Previous Rx's Medication Instructions Recorded HYDROcodone/APAP 5-325MG [[place] 1 tab PO Q6HR PRN 3 Days #12 tab 09/08/24 5-325] Metoclopramide HCl [Reglan] 10 mg PO TID PRN #12 tablet 09/08/24 Allergies Allergy/AdvReac Type Severity Reaction Status Date / Time bee venom protein (honey bee) Allergy Anaphylaxis Verified 09/08/24 17:36 house dust Allergy See Comment Verified 09/08/24 17:36 latex Allergy Rash/Hives Verified 09/08/24 17:36 Review of Systems ROS Other: All systems not noted in ROS Statement are negative. <Susan Lauren - Last Filed: 09/08/24 13:15> ROS Other: All systems not noted in ROS Statement are negative. <Josh Randolph - Last Filed: 09/08/24 18:44> ROS Statement: Those systems with pertinent positive or pertinent negative responses have been documented in the HPI. Past Medical History Past Medical History: No Reported History Additional Past Medical History / Comment(s): Lump left breast- removed . Hx ruptured ovarian cyst 10/2020. COVID IN EARLY 2020. migraines. pain lt wrist from old fx. History of Any Multi-Drug Resistant Organisms: None Reported Past Surgical History: No Surgical Hx Reported Additional Past Surgical History / Comment(s): Lt breast core biopsy- benign Past Anesthesia/Blood Transfusion Reactions: Postoperative Nausea & Vomiting (PONV) Additional Past Anesthesia/Blood Transfusion Reaction / Comment(s): pt had adverse rx to some part of anesthesia never known.. hard to wake up then nausea &vomiting then seizure like activity twitching,eyes rolled back ,clenching jaw. spent the night had some high bp through the night. ok the next morning.. Past Psychological History: Anxiety, Depression Smoking Status: Vaper Past Alcohol Use History: None Reported Past Drug Use History: None Reported - Past Family History Mother Family Medical History: No Reported History Father Family Medical History: Blood Disorder <Susan Lauren - Last Filed: 09/08/24 13:15> General Exam Limitations: no limitations <Susan Lauren - Last Filed: 09/08/24 13:15> <Josh Randolph - Last Filed: 09/08/24 18:44> - General Exam Comments Initial Comments: Visual Physical Exam Vital signs reviewed General: Well-appearing, nontoxic, no acute distress. Head: Normocephalic, atraumatic Eyes: PERRLA, EOMI ENT: Airway patent Chest: Nonlabored breathing Skin: No visual rash, normal skin tone Neuro: Alert and oriented 3 Musculoskeletal: No gross abnormalities (Susan Lauren) PHYSICAL EXAM: General Impression: Alert and oriented x3, acute distress secondary pain HEENT: Normocephalic atraumatic, extra-ocular movements intact, pupils equal and reactive to light bilaterally, mucous membranes moist. Cardiovascular: Heart regular rate and rhythm Chest: Able to complete full sentences, no retractions, no tachypnea Abdomen: abdomen soft, severe palpatory tenderness in right upper quadrant, non- distended, no organomegaly Musculoskeletal: Pulses present and equal in all extremities, no peripheral edema Motor: no focal deficits noted Neurological: CN II-XII grossly intact, no focal motor or sensory deficits noted Skin: Intact with no visualized rashes Psych: Normal affect and mood (Josh Randolph) Course Vital Signs 09/08/24 09/08/24 09/08/24 12:34 17:24 18:27 Temperature 97.5 F L 97.8 F Pulse Rate 80 90 90 Respiratory 22 18 18 Rate Blood Pressure 121/85 119/97 110/68 O2 Sat by Pulse 99 98 98 Oximetry Medical Decision Making <Susan Lauren - Last Filed: 09/08/24 13:15> - Lab Data Result diagrams: 09/08/24 13:50 09/08/24 13:50 <Josh Randolph - Last Filed: 09/08/24 18:44> - Medical Decision Making I performed the quick note portion of this chart. Electronically signed by Susan Lauren PA-C (Susan Lauren) Was pt. sent in by a medical professional or institution (ABDON Vasques, SENIOR INTERACTIVE PRODUCER, urgent care, hospital, or usp...) When possible be specific @ -No Did you speak to anyone other than the patient for history (EMS, parent, family, police, friend...)? What history was obtained from this source @ -No Did you review nursing and triage notes (agree or disagree)? Why? @ -I reviewed and agree with nursing and triage notes Were old charts reviewed (outside hosp., previous admission, EMS record, old EKG, old radiological studies, urgent care reports/EKG's, usp records)? Report findings @ -No old charts were reviewed Differential Diagnosis (chest pain, altered mental status, abdominal pain women, abdominal pain men, vaginal bleeding, musculoskeletal, weakness, fever, dyspnea, syncope, headache, dizziness, GI bleed, back pain, seizure, CVA, palpatations, mental health)? @ -Differential Abdominal Pain Women: Appendicitis, Cholecystitis, diverticulosis, ischemic bowel, pancreatitis, hepatitis, UTI, gastroenteritis, AAA, incarcerated hernia, bowel obstruction, constipation, inflammatory bowel, hepatitis, peptic ulcer disease, splenic infarction, perforated viscus, vulvitis, ovarian torsion, PID, kidney stone, placenta abruption, this is not meant to be an all-inclusive list EKG interpreted by me (3pts min.). @ -None done X-rays interpreted by me (1pt min.). @ -None done CT interpreted by me (1pt min.). @ -CT ab pelvis shows no acute processes U/S interpreted by me (1pt. min.). @ -Ultrasound shows no acute process to the abdomen What testing was considered but not performed or refused? (CT, X-rays, U/S, labs)? Why? @ -None What meds were considered but not given or refused? Why? @ -None Was smoking cessation discussed for >3mins.? @ -No Were there social determinants of health that impacted care today? How? (H omelessness, low income, unemployed, alcoholism, drug addiction, transportation, low edu. Level, literacy, decrease access to med. care, usp, rehab)? @ -No Was there de-escalation of care discussed even if they declined (Discuss DNR or withdrawal of care, Hospice)? DNR status @ -No What co-morbidities impacted this encounter? (DM, HTN, Smoking, COPD, CAD, Cancer, CVA, ARF, Chemo, Hep., AIDS, mental health diagnosis, sleep apnea, morbid obesity)? @ -Endometriosis Was patient admitted / discharged? Hospital course, mention meds given and route, prescriptions, significant lab abnormalities, going to OR and other pertinent info. @ -18-year-old female presents emergency department acute nausea vomiting and abdominal pain. Vital signs stable. Patient severe distress at the bedside upon initial evaluation. Labs unremarkable. Imaging studies are negative. Urinalysis negative. Patient given symptomatic treatment with improvement of symptoms at reevaluation at 6:41 PM. Patient is agreeable for discharge. Patient to bring prescription for pain medication and nausea medication. Adv ised follow-up with primary care doctor. Patient provided work note per by request Did you discuss the management of the patient with other professionals (professionals i.e. , PA, SENIOR INTERACTIVE PRODUCER, lab, RT, psych nurse, social security specialist, tape cutter, teacher, asset protection officer, comp field case manager)? Give summary @ -No Was critical care preformed (if so, how long)? @ -No Undiagnosed new problem with uncertain prognosis? @ -No Drug Therapy requiring intensive monitoring for toxicity (Heparin, Nitro, Insulin, Cardizem)? @ -No Were any procedures done? @ -No Diagnosis/symptom? Acute, or Chronic, or Acute on Chronic? Uncomplicated (without systemic symptoms) or Complicated (systemic symptoms)? @ -Gastroenteritis Side effects of treatment? @ -No Exacerbation, Progression, or Severe Exacerbation? @ -No Poses a threat to life or bodily function? How? (Chest pain, [place], [place], pneumonia, PE, COPD, DKA, ARF, appy, cholecystitis, CVA, Diverticulitis, Homicidal, Suicidal, threat to staff... and all critical care pts) @ -No (Josh Randolph) - Lab Data Lab Results 09/08/24 09/08/24 09/08/24 Range/Units 13:50 13:50 13:50 WBC 11.03 H (4.50-10.00) 10*3/uL RBC 4.96 (4.10-5.20) 10*6/uL Hgb 15.6 H (12.0-15.0) g/dL Hct 45.3 (37.2-46.3) % MCV 91.3 (80.0-97.0) fL MCH 31.5 (27.0-32.0) pg MCHC 34.4 (32.0-37.0) g/dL Plt Count 289 (140-440) 10*3/uL MPV 8.9 L (9.5-12.2) fL Immature Gran % (Auto) 0.3 % Neutrophils % 71.0 % Lymphocytes % 19.3 % Monocytes % 8.2 % Eosinophils % 0.6 % Basophils % 0.6 % Immature Gran # 0.03 (0.00-0.04) 10*3/uL Neutrophils # 7.83 H (1.80-7.70) 10*3/uL Lymphocytes # 2.13 (0.90-5.00) 10*3/uL Monocytes # 0.90 (0.20-1.00) 10*3/uL Eosinophils # 0.07 (0.04-0.35) 10*3/uL Basophils # 0.07 (0.00-0.10) 10*3/uL Sodium 140 (137-145) mmol/L Potassium 3.8 (3.5-5.1) mmol/L Chloride 106 (98-107) mmol/L Carbon Dioxide 24 (22-30) mmol/L Anion Gap 10 mmol/L BUN 13 (7-17) mg/dL Creatinine 0.96 (0.52-1.04) mg/dL Est GFR (CKD-EPI)AfAm >90 (>60 ml/min/1.73 sqM) Est GFR (CKD-EPI)NonAf 86 (>60 ml/min/1.73 sqM) Glucose 103 H (74-99) mg/dL Plasma Lactic Acid Memo 0.6 L (0.7-2.0) mmol/L Calcium 11.4 H (8.4-10.2) mg/dL Total Bilirubin 1.4 H (0.2-1.3) mg/dL AST 28 (14-36) U/L ALT 19 (4-34) U/L Alkaline Phosphatase 75 (38-126) U/L Total Protein 7.4 (6.3-8.2) g/dL Albumin 4.7 (3.5-5.0) g/dL Amylase 79 (30-110) U/L Lipase 64 (23-300) U/L Urine Color Urine Appearance (Clear) Urine pH (5.0-8.0) Ur Specific Mineral (1.001-1.035) Urine Protein (Negative) Urine Glucose (UA) (Negative) Urine Ketones (Negative) Urine Blood (Negative) Urine Nitrite (Negative) Urine Bilirubin (Negative) Urine Urobilinogen (<2.0) mg/dL Ur Leukocyte Esterase (Negative) Urine WBC (0-5) /hpf Ur Squamous Epith Cells (0-4) /hpf Amorphous Sediment (None) /hpf Urine Mucus (None) /hpf Urine HCG, Qual (Not Detectd) 09/08/24 09/08/24 Range/Units 14:50 14:50 WBC (4.50-10.00) 10*3/uL RBC (4.10-5.20) 10*6/uL Hgb (12.0-15.0) g/dL Hct (37.2-46.3) % MCV (80.0-97.0) fL MCH (27.0-32.0) pg MCHC (32.0-37.0) g/dL Plt Count (140-440) 10*3/uL MPV (9.5-12.2) fL Immature Gran % (Auto) % Neutrophils % % Lymphocytes % % Monocytes % % Eosinophils % % Basophils % % Immature Gran # (0.00-0.04) 10*3/uL Neutrophils # (1.80-7.70) 10*3/uL Lymphocytes # (0.90-5.00) 10*3/uL Monocytes # (0.20-1.00) 10*3/uL Eosinophils # (0.04-0.35) 10*3/uL Basophils # (0.00-0.10) 10*3/uL Sodium (137-145) mmol/L Potassium (3.5-5.1) mmol/L Chloride (98-107) mmol/L Carbon Dioxide (22-30) mmol/L Anion Gap mmol/L BUN (7-17) mg/dL Creatinine (0.52-1.04) mg/dL Est GFR (CKD-EPI)AfAm (>60 ml/min/1.73 sqM) Est GFR (CKD-EPI)NonAf (>60 ml/min/1.73 sqM) Glucose (74-99) mg/dL Plasma Lactic Acid Memo (0.7-2.0) mmol/L Calcium (8.4-10.2) mg/dL Total Bilirubin (0.2-1.3) mg/dL AST (14-36) U/L ALT (4-34) U/L Alkaline Phosphatase (38-126) U/L Total Protein (6.3-8.2) g/dL Albumin (3.5-5.0) g/dL Amylase (30-110) U/L Lipase (23-300) U/L Urine Color Colorless Urine Appearance Turbid H (Clear) Urine pH 8.0 (5.0-8.0) Ur Specific Mineral 1.008 (1.001-1.035) Urine Protein Negative (Negative) Urine Glucose (UA) Negative (Negative) Urine Ketones Negative (Negative) Urine Blood Negative (Negative) Urine Nitrite Negative (Negative) Urine Bilirubin Negative (Negative) Urine Urobilinogen <2.0 (<2.0) mg/dL Ur Leukocyte Esterase Trace H (Negative) Urine WBC 1 (0-5) /hpf Ur Squamous Epith Cells 1 (0-4) /hpf Amorphous Sediment Few H (None) /hpf Urine Mucus Rare H (None) /hpf Urine HCG, Qual Not Detected (Not Detectd) Disposition <Susan Lauren - Last Filed: 09/08/24 13:15> Is patient prescribed a controlled substance at d/c from ED?: Yes If prescribed controlled substance>3 days was MAPS reviewed?: Prescribed <3 Days Time of Disposition: 18:44 <Josh Randolph - Last Filed: 09/08/24 18:44> Clinical Impression: Gastroenteritis Disposition: HOME SELF-CARE Condition: Fair Prescriptions: HYDROcodone/APAP 5-325MG [[place] 5-325] 1 tab PO Q6HR PRN 3 Days #12 tab PRN Reason: Severe Pain Metoclopramide HCl [Reglan] 10 mg PO TID PRN #12 tablet PRN Reason: nausea/vomiting Referrals: Ronny Solo MD [Primary Care Provider] - 1-2 days
[2024-09-08] MEDS: ONDANSETRON 4 MG/2 ML VIAL IVP STA (13:57)
[2024-09-08 14:04] LABS: Basophils # (A) 0.07 10*3/uL (0.00-0.10); Basophils % (A) 0.6 %; Eosinophils # (A) 0.07 10*3/uL (0.04-0.35); Eosinophils % (A) 0.6 %; HCT 45.3 % (37.2-46.3); HGB 15.6 g/dL (12.0-15.0); Lymphocytes # (A) 2.13 10*3/uL (0.90-5.00); Lymphocytes % (A) 19.3 %; MCH 31.5 pg (27.0-32.0); MCHC 34.4 g/dL (32.0-37.0); MCV 91.3 fL (80.0-97.0); Mean Platelet Volume 8.9 fL (9.5-12.2); Monocytes % (A) 8.2 %; Neutrophils # (A) 7.83 10*3/uL (1.80-7.70); Platelet Count 289 10*3/uL (140-440); RBC 4.96 10*6/uL (4.10-5.20); WBC 11.03 10*3/uL (4.50-10.00)
[2024-09-08 14:22] LABS: ALT 19 U/L (4-34); AST 28 U/L (14-36); African American GFR (CKD) >90 (>60 ml/min/1.73 sqM); Albumin 4.7 g/dL (3.5-5.0); Alkaline Phosphatase 75 U/L (38-126); Amylase 79 U/L (30-110); Anion Gap 10 mmol/L; Blood Urea Nitrogen 13 mg/dL (7-17); Calcium 11.4 mg/dL (8.4-10.2); Carbon Dioxide 24 mmol/L (22-30); Chloride 106 mmol/L (98-107); Glucose 103 mg/dL (74-99); Lipase 64 U/L (23-300); Non-African American GFR(CKD) 86 (>60 ml/min/1.73 sqM); Potassium 3.8 mmol/L (3.5-5.1); Sodium 140 mmol/L (137-145); Total Bilirubin 1.4 mg/dL (0.2-1.3); Total Protein 7.4 g/dL (6.3-8.2)
[2024-09-08 15:15] LABS: Amorphous Sediment,Urine Few /hpf; Appearance,Urine Turbid (Clear); Bilirubin,Urine Negative (Negative); Blood,Urine Negative (Negative); Color,Urine Colorless; Glucose,Urine (UA) Negative (Negative); Ketones,Urine Negative (Negative); Leukocyte Esterase,Urine Trace (Negative); Mucus,Urine Rare /hpf; Nitrite,Urine Negative (Negative); Protein,Urine Negative (Negative); Specific Gravity,Urine 1.008 (1.001-1.035); Squamous Epithelial Cell,Urine 1 /hpf (0-4); Urobilinogen,Urine <2.0 mg/dL (<2.0); WBC,Urine 1 /hpf (0-5)
[2024-09-08] MEDS: KETOROLAC 15 MG/ML 1 ML VIAL IVP STA (16:56)
[2024-09-08] MEDS: SODIUM CHLORIDE 0.9% 1,000 ML IV STA (17:14)
[2024-09-08] MEDS: METOCLOPRAMIDE 5 MG/ML 2 ML VIAL IVP STA (17:16)
[2024-09-08] MEDS: MORPHINE SULFATE 4 MG/ML SYRINGE IVP PRN (17:19)
[2024-09-08 17:25] VITALS: PULSE 90; RESP 18; TEMP 97.8
--- NOTE | 2024-09-08 18:06 | CT ---
EXAMINATION TYPE: CT abdomen pelvis w con DATE OF EXAM: 09/08/2024 5:56 PM COMPARISON: Previous CT abdomen/pelvis dated 05/06/2023. CLINICAL INDICATION: Female, 18 years old with history of abdominal pain; IBS/rt side pain TECHNIQUE: Axial CT abdomen pelvis w con;Sagittal and coronal reformats were created on a separate w orkstation. Contrast used:100 ml mL of Isovue 300 with IV Contrast, (none if empty) Oral contrast used: without Oral Contrast (none if empty) CT DLP: 270.6 mGycm, Automated exposure control for dose reduction was used. FINDINGS: LOWER CHEST: Unremarkable ABDOMEN LIVER: Unremarkable GALLBLADDER AND BILE DUCTS: Unremarkable. PANCREAS: Unremarkable. SPLEEN: Unremarkable. ADRENAL GLANDS: Unremarkable. KIDNEYS AND URETERS: No evidence of hydronephrosis or renal calculus. The ureters are unremarkable. PELVIS BLADDER: No evidence for wall thickening or mass given limitations of exam. REPRODUCTIVE: Uterus unremarkable. Tampon in place. ABDOMEN & PELVIS STOMACH AND BOWEL: Stomach and duodenum are unremarkable. No evidence of bowel obstruction. Appendix not discretely visualized within a secondary findings to suggest acute appendicitis. PERITONEUM/RETROPERITONEUM: No evidence of pneumoperitoneum or free fluid. VASCULATURE: No evidence of aortic aneurysm. MUSCULOSKELETAL: No acute osseous abnormalities LYMPH NODES: No gross evidence for lymphadenopathy. SOFT TISSUE/ABDOMINAL WALL: Unremarkable IMPRESSION: No acute abnormality in the abdomen/pelvis or CT findings to explain reported symptoms. [facility], , 09/08/2024 6:04 PM
[2024-09-08 18:28] VITALS: BP 110/68
== END 2024-09-08 18:52 | disposition home or self-care (01) ==
LOC: EC 12:24
DX: K52.9 Noninfective gastroenteritis and colitis, unspecified (principal); F17.290 Nicotine dependence, other tobacco product, uncomplicated; Z91.030 Bee allergy status; Z91.040 Latex allergy status; Z91.09 Other allergy status, other than to drugs and biological substances
CPT/HCPCS: 36415; 80053; 82150; 83605; 83690; 85025; 81001; 81025; 76705; 74177; 99284; 96374; 96375; 96361; J2270; J2765; J2405; J1885; Q9967

== ENCOUNTER → 2024-09-22 | Outpatient (CLI) | payer BC ==
[2024-09-22 15:33] LABS: Basophils # (A) 0.05 X 10*3/uL (0.00-0.10); Basophils % (A) 0.6 %; Eosinophils # (A) 0.12 X 10*3/uL (0.04-0.35); Eosinophils % (A) 1.5 %; HCT 45.0 % (37.2-46.3); HGB 14.7 g/dL (12.0-15.0); Immature Grans, Automated 0.50 %; Lymphocytes # (A) 2.71 X 10*3/uL (0.90-5.00); Lymphocytes % (A) 33.8 %; MCH 30.9 pg (27.0-32.0); MCHC 32.7 g/dL (32.0-37.0); MCV 94.7 FL (80.0-97.0); Monocytes # (A) 0.70 X 10*3/uL (0.20-1.00); Monocytes % (A) 8.7 %; NRBC Per 100 WBC 0 X 10*3/uL (0.00-0.01); Neutrophils # (A) 4.39 X 10*3/uL (1.80-7.70); Neutrophils % (A) 54.9 %; Platelet Count 273 X 10*3/uL (140-440); RBC 4.75 X 10*6/uL (4.10-5.20); RDW 12.1 % (11.5-14.5); WBC 8.01 X 10*3/uL (4.50-10.00)
== END | disposition home or self-care (01) ==
LOC: LABPAT 09:41
PROVIDERS: ATTEND Obstetrics & Gynecology
DX: Z01.812 Encounter for preprocedural laboratory examination (principal); N80.9 Endometriosis, unspecified
CPT/HCPCS: 85025

== ENCOUNTER 2024-10-01 05:53 | Day surgery (SDC) | payer BC ==
[2024-09-29 09:59] VITALS: BMI 18.8
[~2024-10-01 05:53] MED LIST changes: -MIDAZOLAM 2 MG/2 ML VIAL IV PRN; -SCOPOLAMINE 1 MG/72 HR PATCH TRANSDERM ONE; -fentaNYL (PF) 50 MCG/ML 2 ML AMP IV PRN
[2024-10-01] MEDS: LACTATED RINGERS 1,000 ML BAG IV STA (06:44)
[2024-10-01 06:48] VITALS: TEMP 97.2
[2024-10-01] MEDS: MIDAZOLAM 2 MG/2 ML VIAL IV ONE (07:04)
[2024-10-01] MEDS: ONDANSETRON 4 MG/2 ML VIAL IVP STA (07:04)
[2024-10-01] MEDS: DEXAMETHASONE SOD PHOSPHATE 4 MG/ML 1 ML VIAL IVP STA (07:05)
[2024-10-01] MEDS ORDERED: ONDANSETRON 4 MG/2 ML VIAL IVP ONE (07:07)
[2024-10-01] MEDS ORDERED: DEXAMETHASONE SOD PHOSPHATE 4 MG/ML 1 ML VIAL IV ONE (07:07)
[2024-10-01] MEDS ORDERED: SCOPOLAMINE 1 MG/72 HR PATCH TRANSDERM ONE (07:07)
[2024-10-01] MEDS ORDERED: LACTATED RINGERS 1,000 ML IV SCH (07:07)
[2024-10-01] MEDS: IV FLUID CONTINUATION 1,000 ML IV ONE ×2 (07:07→10:11)
[2024-10-01] MEDS: SCOPOLAMINE 1 MG/72 HR PATCH TRANSDERM STA (07:16)
[2024-10-01] MEDS ORDERED: KETOROLAC 15 MG/ML 1 ML VIAL ONE (07:19)
[2024-10-01] MEDS ORDERED: SUGAMMADEX SODIUM 100 MG/ML SYR IV ONE (07:19)
[2024-10-01] MEDS ORDERED: ROCURONIUM 10 MG/ML (5 ML VIAL) IV ONE (07:19)
[2024-10-01] MEDS ORDERED: PROPOFOL 10 MG/ML 20 ML VIAL IV ONE (07:19)
[2024-10-01] MEDS ORDERED: fentaNYL (PF) 50 MCG/ML 2 ML AMP ONE (07:19)
[2024-10-01] MEDS ORDERED: LIDOCAINE 1% INJ 10MG/ML (20 ML MDV) ONE (07:19)
[2024-10-01] MEDS ORDERED: LIDOCAINE 4% LTA KIT (4 ML) TOPICAL ONE (07:19)
[2024-10-01] MEDS: BUPIVACAINE (PF) 0.25% 30 ML VIAL SQ ONE ×2 (07:56)
--- NOTE | 2024-10-01 08:35 | P.OP ---
Date of Procedure: 10/01/24 Preoperative Diagnosis: 1. Chronic Pelvic Pain 2. Endometriosis Postoperative Diagnosis: Same Procedure(s) Performed: Diagnostic Laparoscopy Implants: None Anesthesia: ARNOLD Surgeon: Lorraine Marquez Estimated Blood Loss (ml): 1 IV fluids (ml): 400 Urine output (ml): 0 Pathology: none sent Condition: stable Disposition: same day Indications for Procedure: Ms. Palacios is a 19 year old G0 with a history of endometriosis and a subacute pelvic and abdominal pain flare. She requested Diagnostic Laparoscopy with fulguration and resection of any endometriosis found. She has had one prior Laparoscopy with minimal endometriosis noted. She was well controlled on Depo Provera for over 12 months, but did discontinue this medication and then had a return of the abdominal and pelvic pain. She was recently hospitalized earlier this week with acute RUQ pain. She was seen by general surgery, gynecology at this outside facility. There were no findings to suggest a gallbladder etiology. She was ultimately discharged and now presents for her scheduled surgery. Risks of Laparoscopy were discussed with the patient including risk of bleeding, infection, damage to surrounding structures, adhesion formation, and need for laparotomy. The patient understands these risks and desires to proceed with surgery as discussed. All questions are answered. Operative Findings: Normal appearing pelvis, uterus, fallopian tubes, and ovaries. No endometrial implants appreciated. Liver does appear mildly enlarged. Gallbladder not able to be visualized. Description of Procedure: Patient was taken to the OR with IV fluid running and pneumatic compression stockings on both legs. General anesthesia was obtained without difficulty. The patient was placed in the dorsal lithotomy position with Richard-type stirrups with knees bent at 30 degree angles. Examination under anesthesia revealed a normal-sized, anteverted uterus. The patient as prepared and draped. The bladder was emptied. A speculum was placed into the vagina. The anterior lip of the cervix was grasped with a single-toothed tenaculum. The uterus was sounded to 8 centimeters in the anteverted position. A uterine manipulator was introduced. A horizontal skin incision was made at the umbilical fold. The periumbilical skin was manually elevated. The Veress needle was introduced into the peritoneal cavity at a straight angle without difficulty. A saline drop test was performed to validate intraperitoneal placement. The pneumoperitoneum was established with CO2 gas to a pressure of 15mmHg. A 5mm trocar was inserted into the abdomen under direct laparoscopic visualization. Intraabdominal survey revealed lack of any visceral or vascular injury. The pelvic and abdominal anatomy was noted as above. Given no endometriosis appreciated in the pelvis, the case was concluded. The laparoscopic trocar was removed and all pneumoperitoneum was released. All instruments were removed from the abdomen and vagina, and all counts were correct times two. The incision was closed with 4-0 Monocryl and skin glue. The patient tolerated the procedure well. All instrument and sponge counts were correct x2. The patient was taken to recover in stable condition.
[2024-10-01] MEDS: HYDROmorphone 0.5 MG/0.5 ML SYRINGE IVP PRN (08:38)
[2024-10-01] MEDS: FLUMAZENIL 0.1 MG/ML 5 ML VIAL IVP STA (09:36)
[2024-10-01] MEDS: ACETAMINOPHEN IV (For NPO) 1,000 MG in EMPTY BAG 1 BAG IVPB STA (09:45)
[2024-10-01] MEDS: KETOROLAC 15 MG/ML 1 ML VIAL IVP STA (09:58)
[2024-10-01] MEDS: LACTATED RINGERS 1,000 ML IV ONE (12:00)
[2024-10-01] MEDS: HYDROcodone/APAP 5-325MG 1 EACH TAB PO STA (12:06)
[2024-10-01 12:48] VITALS: BP 100/50; PULSE 78; RESP 18
== END 2024-10-01 13:37 | disposition home or self-care (01) ==
LOC: OR 05:53
PROVIDERS: ATTEND Obstetrics & Gynecology
DX: N80.9 Endometriosis, unspecified (principal); U07.0 Vaping-related disorder; Z91.040 Latex allergy status; Z91.030 Bee allergy status; Z79.899 Other long term (current) drug therapy
CPT/HCPCS: 81025; 49320; J2250; J1100; J2405; J2003; J3010; J0131; J1885; J2704; J1171; J0665

== ENCOUNTER 2024-10-03 18:19 | Emergency (ER) | payer BC ==
--- NOTE | 2024-10-03 18:57 | ED ---
General Adult HPI - General Chief complaint: Abdominal Pain Stated complaint: Post op issues Time Seen by Provider: 10/03/24 18:25 Source: patient Mode of arrival: ambulatory Limitations: no limitations - History of Present Illness Initial comments: Dictation was produced using cliniq[employer] dictation software. please excuse any grammatical, word or spelling errors. Chief Complaint: 19-year-old female presents to the emergency with abdominal pain and vaginal discharge History of Present Illness: 19-year-old female presents to the emergency department with vaginal discharge and abdominal pain. Patient has history of chronic pelvic pain. Patient states that 2 days ago patient had laparoscopic exploratory surgery done by [facility] for concerns of chronic pelvic pain or endometriosis. Patient had a benign evaluation. There is no endometriosis spots seen. Patient had otherwise normal anatomy. States that since today she has been having worsening pain and started to have green vaginal discharge. States that she feels a little hot flushed. Denies any fever chills or night sweats. The ROS documented in this emergency department record has been reviewed and confirmed by me. Those systems with pertinent positive or negative responses have been documented in the HPI. All other systems are other negative and/or noncontributory. - Related Data Home Medications Medication Instructions Recorded Confirmed medroxyPROGESTERone [Depo-Provera] 150 mg IM Q84D 02/11/23 10/01/24 Famotidine [Pepcid] 20 mg PO HS 09/08/24 10/01/24 Omeprazole 20 mg PO DAILY 09/08/24 10/01/24 Melatonin [Melatonin Tr] 10 mg PO HS 09/29/24 10/01/24 Naproxen Sodium [Aleve] 220 mg PO DAILY PRN 09/29/24 09/29/24 Ondansetron Odt [Zofran Odt] 8 mg PO PRN 10/01/24 Previous Rx's Medication Instructions Recorded Acetaminophen Tab [Tylenol] 650 mg PO Q6H PRN #30 tab 10/01/24 Ibuprofen [Motrin] 600 mg PO Q6HR PRN #30 tab 10/01/24 Allergies Allergy/AdvReac Type Severity Reaction Status Date / Time bee venom protein (honey bee) Allergy Anaphylaxis Verified 10/01/24 06:31 house dust Allergy See Comment Verified 10/01/24 06:31 latex Allergy Rash/Hives Verified 10/01/24 06:31 Review of Systems ROS Statement: Those systems with pertinent positive or pertinent negative responses have been documented in the HPI. ROS Other: All systems not noted in ROS Statement are negative. Past Medical History Past Medical History: No Reported History Additional Past Medical History / Comment(s): Lump left breast- removed . Hx ruptured ovarian cyst 10/2020. COVID IN EARLY 2020. migraines. pain lt wrist from old fx. History of Any Multi-Drug Resistant Organisms: None Reported Past Surgical History: No Surgical Hx Reported Additional Past Surgical History / Comment(s): Lt breast core biopsy- benign Past Anesthesia/Blood Transfusion Reactions: Postoperative Nausea & Vomiting (PONV) Additional Past Anesthesia/Blood Transfusion Reaction / Comment(s): pt had adverse rx to some part of anesthesia never known.. hard to wake up then nausea &vomiting then seizure like activity twitching,eyes rolled back ,clenching jaw. spent the night had some high bp through the night. ok the next morning.. Past Psychological History: Anxiety, Depression Smoking Status: Vaper - Past Family History Mother Family Medical History: No Reported History Father Family Medical History: No Reported History General Exam - General Exam Comments Initial Comments: PHYSICAL EXAM: General Impression: Alert and oriented x3, not in acute distress HEENT: Normocephalic atraumatic, extra-ocular movements intact, pupils equal and reactive to light bilaterally, mucous membranes moist. Cardiovascular: Heart regular rate and rhythm Chest: Able to complete full sentences, no retractions, no tachypnea Abdomen: abdomen soft, tender abdomen diffusely worse in the lower quadrants, non-distended, no organomegaly Musculoskeletal: Pulses present and equal in all extremities, no peripheral ruben ma Motor: no focal deficits noted Neurological: CN II-XII grossly intact, no focal motor or sensory deficits noted Skin: Intact with no visualized rashes Psych: Normal affect and mood Limitations: no limitations Course Vital Signs 10/03/24 18:34 Temperature 98.4 F Pulse Rate 92 Respiratory 20 Rate Blood Pressure 123/84 O2 Sat by Pulse 98 Oximetry - Reevaluation(s) Reevaluation #1: 10/03/24 19:03 Patient offered pelvic exam she refused. Patient also offered CT abdomen pelvis due to severe pain she states that she refused recommended pelvic exam and CT ab pelvis given that patient is having severe pain after surgical procedure. Patient refused pelvic and CT exam. Medical Decision Making - Medical Decision Making Was pt. sent in by a medical professional or institution (, PA, HOME HEALTH AIDE CAREGIVER, urgent care, hospital, or care home...) When possible be specific @ -No Did you speak to anyone other than the patient for history (EMS, parent, family, police, friend...)? What history was obtained from this source @ -No Did you review nursing and triage notes (agree or disagree)? Why? @ -I reviewed and agree with nursing and triage notes Were old charts reviewed (outside hosp., previous admission, EMS record, old EKG, old radiological studies, urgent care reports/EKG's, care home records)? Report findings @ -No old charts were reviewed Differential Diagnosis (chest pain, altered mental status, abdominal pain women, abdominal pain men, vaginal bleeding, musculoskeletal, weakness, fever, dyspnea, syncope, headache, dizziness, GI bleed, back pain, seizure, CVA, palpatations, mental health)? @ -Differential Abdominal Pain Women: Appendicitis, Cholecystitis, diverticulosis, ischemic bowel, pancreatitis, hepatitis, UTI, gastroenteritis, AAA, incarcerated hernia, bowel obstruction, constipation, inflammatory bowel, hepatitis, peptic ulcer disease, splenic infarction, perforated viscus, vulvitis, ovarian torsion, PID, kidney stone, placenta abruption, this is not meant to be an all-inclusive list EKG interpreted by me (3pts min.). @ -None done X-rays interpreted by me (1pt min.). @ -None done CT interpreted by me (1pt min.). @ -None done U/S interpreted by me (1pt. min.). @ -Transvaginal ultrasound shows no acute processes What testing was considered but not performed or refused? (CT, X-rays, U/S, labs)? Why? @ -None What meds were considered but not given or refused? Why? @ -None Was smoking cessation discussed for >3mins.? @ -No Were there social determinants of health that impacted care today? How? (Homelessness, low income, unemployed, alcoholism, drug addiction, transportation, low edu. Level, literacy, decrease access to med. care, fdc, re hab)? @ -No Was there de-escalation of care discussed even if they declined (Discuss DNR or withdrawal of care, Hospice)? DNR status @ -No What co-morbidities impacted this encounter? (DM, HTN, Smoking, COPD, CAD, Cancer, CVA, ARF, Chemo, Hep., AIDS, mental health diagnosis, sleep apnea, morbid obesity)? @ -Chronic abdominal pain Was patient admitted / discharged? Hospital course, mention meds given and route, prescriptions, significant lab abnormalities, going to OR and other pertinent info. @ -19-year-old female with chronic abdominal pain had recent laparoscopic surgery with no abnormalities. Patient is tender abdomen however soft. She is well-appearing. Vital signs are stable. Laboratory evaluation is unremarkable. Patient refusing pelvic exam and CT abdomen pelvis. Patient given analgesic medications and IV fluids with minimal improvement of symptoms. Discussed disposition options with patient she is agreeable for discharge. She does not meet any criteria for admission. Return precautions discussed advised follow-up with [facility]. Did you discuss the management of the patient with other professionals (professionals i.e. , PA, HOME HEALTH AIDE CAREGIVER, lab, RT, psych nurse, social science professor, lamination spinner, teacher, fare enforcement officer, director case management)? Give summary @ -No Was critical care preformed (if so, how long)? @ -No Undiagnosed new problem with uncertain prognosis? @ -No Drug Therapy requiring intensive monitoring for toxicity (Heparin, Nitro, Insulin, Cardizem)? @ -No Were any procedures done? @ -No Diagnosis/symptom? Acute, or Chronic, or Acute on Chronic? Uncomplicated (without systemic symptoms) or Complicated (systemic symptoms)? @ -Acute on chronic and abdominal pelvic pain Side effects of treatment? @ -No Exacerbation, Progression, or Severe Exacerbation? @ -No Poses a threat to life or bodily function? How? (Chest pain, [place], GA, pneumonia, PE, COPD, DKA, ARF, appy, cholecystitis, CVA, Diverticulitis, Homicidal, Suicidal, threat to staff... and all critical care pts) @ -No - Lab Data Result diagrams: 10/03/24 19:08 10/03/24 19:08 Lab Results 10/03/24 10/03/24 10/03/24 Range/Units 19:08 19:08 19:08 WBC 9.83 (4.50-10.00) 10*3/uL RBC 4.45 (4.10-5.20) 10*6/uL Hgb 14.3 (12.0-15.0) g/dL Hct 40.4 (37.2-46.3) % MCV 90.8 (80.0-97.0) fL MCH 32.1 H (27.0-32.0) pg MCHC 35.4 (32.0-37.0) g/dL Plt Count 290 (140-440) 10*3/uL MPV 9.1 L (9.5-12.2) fL Immature Gran % (Auto) 0.4 % Neutrophils % 57.6 % Lymphocytes % 32.2 % Monocytes % 8.2 % Eosinophils % 1.0 % Basophils % 0.6 % Immature Gran # 0.04 (0.00-0.04) 10*3/uL Neutrophils # 5.65 (1.80-7.70) 10*3/uL Lymphocytes # 3.17 (0.90-5.00) 10*3/uL Monocytes # 0.81 (0.20-1.00) 10*3/uL Eosinophils # 0.10 (0.04-0.35) 10*3/uL Basophils # 0.06 (0.00-0.10) 10*3/uL Sodium 141 (137-145) mmol/L Potassium 4.1 (3.5-5.1) mmol/L Chloride 107 (98-107) mmol/L Carbon Dioxide 22 (22-30) mmol/L Anion Gap 12 mmol/L BUN 11 (7-17) mg/dL Creatinine 0.69 (0.52-1.04) mg/dL Est GFR (CKD-EPI)AfAm >90 (>60 ml/min/1.73 sqM) Est GFR (CKD-EPI)NonAf >90 (>60 ml/min/1.73 sqM) Glucose 94 (74-99) mg/dL Plasma Lactic Acid Memo 1.2 (0.7-2.0) mmol/L Calcium 9.8 (8.4-10.2) mg/dL Magnesium 2.1 (1.6-2.3) mg/dL Total Bilirubin 0.3 (0.2-1.3) mg/dL AST 20 (14-36) U/L ALT 10 (4-34) U/L Alkaline Phosphatase 77 (38-126) U/L Total Protein 7.3 (6.3-8.2) g/dL Albumin 4.5 (3.5-5.0) g/dL Disposition Clinical Impression: Abdominal pain Disposition: HOME SELF-CARE Condition: Fair Instructions (If sedation given, give patient instructions): Abdominal Pain (ED) Is patient prescribed a controlled substance at d/c from ED?: No Referrals: Ronny Solo MD [Primary Care Provider] - 1-2 days Lorraine Marquez MD [STAFF PHYSICIAN] - 1-2 days Time of Disposition: 20:42
[2024-10-03 19:12] LABS: Basophils # (A) 0.06 10*3/uL (0.00-0.10); Basophils % (A) 0.6 %; Eosinophils # (A) 0.10 10*3/uL (0.04-0.35); Eosinophils % (A) 1.0 %; HCT 40.4 % (37.2-46.3); HGB 14.3 g/dL (12.0-15.0); Lymphocytes # (A) 3.17 10*3/uL (0.90-5.00); Lymphocytes % (A) 32.2 %; MCH 32.1 pg (27.0-32.0); MCHC 35.4 g/dL (32.0-37.0); MCV 90.8 fL (80.0-97.0); Monocytes # (A) 0.81 10*3/uL (0.20-1.00); Monocytes % (A) 8.2 %; Neutrophils # (A) 5.65 10*3/uL (1.80-7.70); Neutrophils % (A) 57.6 %; Platelet Count 290 10*3/uL (140-440); RBC 4.45 10*6/uL (4.10-5.20); RDW 11.8 % (11.5-14.5); WBC 9.83 10*3/uL (4.50-10.00)
[2024-10-03] MEDS: MORPHINE SULFATE 4 MG/ML SYRINGE IV STA (19:18)
[2024-10-03] MEDS: SODIUM CHLORIDE 0.9% 1,000 ML IV STA (19:18)
[2024-10-03 19:24] LABS: ALT 10 U/L (4-34); AST 20 U/L (14-36); African American GFR (CKD) >90 (>60 ml/min/1.73 sqM); Albumin 4.5 g/dL (3.5-5.0); Alkaline Phosphatase 77 U/L (38-126); Anion Gap 12 mmol/L; Blood Urea Nitrogen 11 mg/dL (7-17); Calcium 9.8 mg/dL (8.4-10.2); Carbon Dioxide 22 mmol/L (22-30); Chloride 107 mmol/L (98-107); Glucose 94 mg/dL (74-99); Magnesium 2.1 mg/dL (1.6-2.3); Non-African American GFR(CKD) >90 (>60 ml/min/1.73 sqM); Potassium 4.1 mmol/L (3.5-5.1); Sodium 141 mmol/L (137-145); Total Protein 7.3 g/dL (6.3-8.2)
--- NOTE | 2024-10-03 20:29 | US ---
EXAMINATION TYPE: US transvaginal DATE OF EXAM: 10/03/2024 COMPARISON: US 2022 CLINICAL INDICATION: Female, 19 years old with history of vaginal discharge; Vaginal bleeding followi ng recent laparoscopic surgery for endometriosis TECHNIQUE: Transvaginal (TV). FINDINGS: Date of LMP: 2 years ago - patient on control EXAM MEASUREMENTS: Uterus: 6.0 x 3.0 x 4.0 cm Endometrial Stripe: 0.7 cm Right Ovary: 2.0 x 1.9 x 1.9 cm Left Ovary: 2.9 x 1.9 x 1.5 cm 1. Uterus: anteverted 2. Endometrium: fluid within endo 3. Right Ovary: multiple follicles 4. Left Ovary: multiple follicles Spectral, color and waveform doppler imaging shows good arterial and venous flow within the left ov italo and good arterial flow within the right ovary, unable to obtain venous flow within the right ovar y. 5. Bilateral Adnexa: wnl 6. Posterior cul-de-sac: Small volume free fluid in the pelvis, likely physiologic related. IMPRESSION: Nonspecific small volume free fluid within the endometrial canal. Otherwise, unremarkable pelvic ultr asound exam [facility], , 10/03/2024 8:27 PM
[2024-10-03 21:10] VITALS: BP 118/83; PULSE 62; RESP 18; TEMP 98.7
== END 2024-10-03 21:20 | disposition home or self-care (01) ==
LOC: EC 18:19
DX: G89.29 Other chronic pain (principal); R10.2 Pelvic and perineal pain; F17.290 Nicotine dependence, other tobacco product, uncomplicated; Z91.030 Bee allergy status; Z91.040 Latex allergy status; Z88.8 Allergy status to other drugs, medicaments and biological substances
CPT/HCPCS: 36415; 80053; 83605; 83735; 85025; 93975; 76830; 99284; 96374; 96361; J2270